=== PATIENT | female | born 1960 | race Caucasian/White ===

== ENCOUNTER 2016-06-09 17:15 | Emergency (ER) | payer MEDICARE, MEDICAID ==
[~2016-06-09] VITALS: Ht 152.4 cm; Wt 90.9 kg
[~2016-06-09 17:15] MED LIST: CLON1 PO; LITH300C3 PO; OLAN10TA3 PO
[2016-06-09] MEDS ORDERED: LORazepam 2 MG/ML VIAL IM ONE (18:30)
[2016-06-09 20:24] LABS: BASOPHILS # (AUTO) 0.03 K/uL (0.00-0.20); BASOPHILS % (AUTO) 0.3 % (0.0-2.0); EOSINOPHILS # (AUTO) 0.17 K/uL (0.00-0.70); EOSINOPHILS % (AUTO) 1.61 % (1.0-6.0); HEMATOCRIT 36.5 % (36-46); HEMOGLOBIN 12.5 g/dL (12.0-16.0); LYMPHOCYTES % (AUTO) 18.6 % (22.0-44.0); MEAN CORPUSCULAR HEMOGLOBIN 31.1 pg (26.0-34.0); MEAN CORPUSCULAR HGB CONC 34.2 G/dL (31.0-37.0); MEAN CORPUSCULAR VOLUME 91 fL (80-100); MONOCYTES # (AUTO) 0.8 K/uL (0.1-1.0); MONOCYTES % (AUTO) 7.8 % (2.0-9.0); NEUTROPHILS # (AUTO) 7.8 K/uL (1.8-7.7); NEUTROPHILS % (AUTO) 71.8 % (40.0-70.0); PLATELET COUNT (AUTO) 321 K/uL (150-450); RED BLOOD CELL COUNT(AUTO) 4.01 MIL/uL (4.00-5.20); RED CELL DISTRIBUTION WIDTH 13.6 % (11.5-14.5); WHITE BLOOD COUNT (AUTO) 10.8 K/uL (4.5-11.0)
[2016-06-09 20:34] LABS: ANION GAP 9 mmol/L (8-16); CARBON DIOXIDE 27 mmol/L (22-29); CHLORIDE 102 mmol/L (98-107); CREATININE 0.95 mg/dL (0.60-1.30); GLOMERULAR FILTR. RATE CALC > 60 mL/min (>60); POTASSIUM 3.9 mmol/L (3.5-5.1); SODIUM SERUM 138 mmol/L (136-145); UREA NITROGEN, BLOOD 18 mg/dL (7-18)
[2016-06-09 20:40] LABS: ALANINE AMINOTRANSFERASE 21 U/L (12-78); ALBUMIN 3.9 g/dL (3.4-5.0); ASPARTATE AMINOTRANSFERASE 15 U/L (15-37); BILIRUBIN,TOTAL 0.3 mg/dL (0.1-1.0); TOTAL PROTEIN, SERUM 7.7 g/dL (6.4-8.2)
[2016-06-09 23:05] VITALS: BP 115/68
== END 2016-06-09 23:05 | disposition home or self-care (01) ==
LOC: EMS 17:18
DX: R41.82 Altered mental status, unspecified (principal); F25.9 Schizoaffective disorder, unspecified; F31.9 Bipolar disorder, unspecified; E78.00 Pure hypercholesterolemia, unspecified
CPT/HCPCS: 36415; 80053; 82140; 85025; 96372; 99284; G0480; J2060

== ENCOUNTER 2016-06-17 12:36 | Inpatient (IN) | payer MEDICARE, MEDICAID ==
[~2016-06-17] VITALS: Ht 157.5 cm; Wt 74.7 kg
[2016-06-17] MEDS ORDERED: ARIP10TA14 PO (12:58)
[2016-06-17] MEDS ORDERED: QUET300T2 PO (12:58)
[2016-06-17] MEDS ORDERED: LORA1TAB3 PO (12:58)
[2016-06-17] MEDS ORDERED: LITH300C3 PO (12:58)
[2016-06-17] MEDS ORDERED: PARO10TA89 PO (12:58)
[2016-06-17] MEDS ORDERED: POT1TABL2 PO (12:58)
[2016-06-17] MEDS ORDERED: TRAZ-147 PO (12:58)
[2016-06-17] MEDS ORDERED: GABA-529 PO (12:58)
[2016-06-17] MEDS ORDERED: GEMF600T3 PO (12:58)
[2016-06-17] MEDS ORDERED: QUET200T PO (12:58)
[2016-06-17] MEDS ORDERED: METO-323 PO (12:58)
[2016-06-17] MEDS ORDERED: ARIP400S3 IM (12:58)
[2016-06-17] MEDS ORDERED: ATOR10TA84 PO (12:58)
[2016-06-17] MEDS ORDERED: METF500T4 PO (12:58)
[2016-06-17 13:26] LABS: GLUCOSE,POINT OF CARE 120 MG/DL (70-110)
[2016-06-17 14:22] LABS: BASOPHILS % (AUTO) 0.4 % (0.0-2.0); EOSINOPHILS % (AUTO) 1.8 % (1.0-6.0); HEMATOCRIT 35.1 % (36-46); HEMOGLOBIN 11.6 g/dL (12.0-16.0); LYMPHOCYTES # (AUTO) 1.5 K/uL (1.0-4.8); MEAN CORPUSCULAR HEMOGLOBIN 30.3 pg (26.0-34.0); MEAN CORPUSCULAR HGB CONC 33.2 G/dL (31.0-37.0); MEAN CORPUSCULAR VOLUME 92 fL (80-100); MONOCYTES # (AUTO) 0.8 K/uL (0.1-1.0); MONOCYTES % (AUTO) 9.1 % (2.0-9.0); NEUTROPHILS # (AUTO) 6.7 K/uL (1.8-7.7); NEUTROPHILS % (AUTO) 72.7 % (40.0-70.0); PLATELET COUNT (AUTO) 318 K/uL (150-450); RED BLOOD CELL COUNT(AUTO) 3.84 MIL/uL (4.00-5.20); RED CELL DISTRIBUTION WIDTH 12.9 % (11.5-14.5); WHITE BLOOD COUNT (AUTO) 9.2 K/uL (4.5-11.0)
[2016-06-17 14:33] LABS: ANION GAP 12 mmol/L (8-16); CALCIUM, TOTAL 9.5 mg/dL (8.8-10.5); CARBON DIOXIDE 27 mmol/L (22-29); CHLORIDE 104 mmol/L (98-107); CREATININE 0.91 mg/dL (0.60-1.30); GLOMERULAR FILTR. RATE CALC > 60 mL/min (>60); LITHIUM 0.93 mmol/L (0.60-1.20); POTASSIUM 3.6 mmol/L (3.5-5.1); SODIUM SERUM 143 mmol/L (136-145); UREA NITROGEN, BLOOD 9 mg/dL (7-18)
[2016-06-17 14:35] LABS: INR 1.1 (0.9-1.1); PROTHROMBIN TIME 11.2 SEC (9.4-11.6)
[2016-06-17 14:39] LABS: APPEARANCE,URINE CLEAR (CLEAR); GLUCOSE, URINE (UA) NEGATIVE (NEGATIVE); KETONES,URINE NEGATIVE (NEGATIVE); LEUKOCYTE ESTERASE ,URINE NEGATIVE (NEGATIVE); OCCULT BLOOD,URINE NEGATIVE (NEGATIVE); PROTEIN,URINE NEGATIVE (NEGATIVE)
[2016-06-17 14:41] LABS: AMMONIA 27 umol/L (11-32)
[2016-06-17 14:42] LABS: TROPONIN I < 0.02 ng/mL (0.00-0.05)
[2016-06-17 14:56] LABS: ADD UA MICROSCOPIC NO
[2016-06-17 15:07] LABS: ALANINE AMINOTRANSFERASE 27 U/L (12-78); ALBUMIN 3.6 g/dL (3.4-5.0); ASPARTATE AMINOTRANSFERASE 25 U/L (15-37); BILIRUBIN,TOTAL 0.3 mg/dL (0.1-1.0); CREATINE KINASE MB 4.7 ng/mL (0-5); CREATINE KINASE, TOTAL 302 U/L (26-192); TOTAL PROTEIN, SERUM 7.6 g/dL (6.4-8.2)
[2016-06-17 15:16] LABS: ABG A-A DIFF O2 53.4 mmHg (10-20.0); ABG BASE EXCESS 3.2 mmol/L (-2.0-3.0); ABG HCO3 27.2 mmol/L (22.0-26.0); ABG OXYHEMOGLOBIN 93.3 % (94.0-100.0); ABG PCO2 39 mmHg (35-45); ABG PH 7.463 (7.35-7.450); TEMPERATURE, FAHRENHEIT, BG 98.6 FAHREN (96.0-98.6)
[2016-06-17 15:17] LABS: ALLEN TEST, BLOOD GAS Positive
[2016-06-18 00:11] LABS: GLUCOSE,POINT OF CARE 149 MG/DL (70-110)
[2016-06-18 01:34] VITALS: BP 127/80
[2016-06-18 05:52] LABS: GLUCOSE,POINT OF CARE 152 MG/DL (70-110)
[2016-06-18 08:30] VITALS: BP 148/99
[2016-06-18] MEDS: ATORVASTATIN CALCIUM 10 MG TABLET PO SCH (10:53)
[2016-06-18 11:22] LABS: GLUCOSE,POINT OF CARE 181 MG/DL (70-110)
[2016-06-18] MEDS: LITHIUM CARBONATE 300 MG CAPSULE PO SCH (16:01)
[2016-06-18] MEDS: MetFORMIN HCL 500 MG TABLET PO SCH (16:01)
[2016-06-18] MEDS: METOPROLOL SUCCINATE 25 MG ER TABLET PO SCH (16:01)
[2016-06-18] MEDS: GEMFIBROZIL 600 MG TABLET PO SCH (16:01)
[2016-06-18 16:12] LABS: GLUCOSE,POINT OF CARE 153 MG/DL (70-110)
[2016-06-18 19:24] VITALS: BP 123/84
[2016-06-18] MEDS ORDERED: ACETAMINOPHEN 325 MG TABLET PO PRN (20:15)
[2016-06-18] MEDS ORDERED: IBUPROFEN 400 MG TABLET PO PRN (20:15)
[2016-06-18] MEDS: OLANZapine 10 MG TABLET PO SCH (20:29)
[2016-06-18 22:42] LABS: GLUCOSE,POINT OF CARE 206 MG/DL (70-110)
[2016-06-19 04:50] VITALS: BP 124/94
[2016-06-19 05:12] LABS: GLUCOSE,POINT OF CARE 177 MG/DL (70-110)
[2016-06-19] MEDS: GEMFIBROZIL 600 MG TABLET PO SCH ×2 (05:37→16:28)
[2016-06-19] MEDS: MetFORMIN HCL 500 MG TABLET PO SCH ×2 (06:32→17:32)
[2016-06-19 07:13] LABS: HEMOGLOBIN A1C 6.5 % (4.5-6.2)
[2016-06-19 07:15] LABS: CHOL/HDL RATIO 3.1 (3.9-5.7); THYROID STIMULATING HORMONE 6.9 uIU/mL (0.36-3.74)
[2016-06-19 08:02] VITALS: BP 106/64
[2016-06-19] MEDS: ATORVASTATIN CALCIUM 10 MG TABLET PO SCH (08:09)
[2016-06-19] MEDS: METOPROLOL SUCCINATE 25 MG ER TABLET PO SCH ×2 (08:09→16:28)
[2016-06-19] MEDS: LITHIUM CARBONATE 300 MG CAPSULE PO SCH ×2 (08:09→16:28)
[2016-06-19 11:28] LABS: GLUCOSE,POINT OF CARE 129 MG/DL (70-110)
[2016-06-19 16:41] LABS: GLUCOSE COMMENT 1 Received Meds; GLUCOSE,POINT OF CARE 165 MG/DL (70-110)
[2016-06-19 17:06] VITALS: BP 108/64
[2016-06-19] MEDS ORDERED: KDUR20 PO (20:29)
[2016-06-19] MEDS: OLANZapine 10 MG TABLET PO SCH (20:29)
[2016-06-19] MEDS ORDERED: PETROLATUM,WHITE 71 GM JELLY TP PRN (20:30)
[2016-06-19 20:31] LABS: GLUCOSE,POINT OF CARE 210 MG/DL (70-110)
[2016-06-20 06:18] LABS: GLUCOSE COMMENT 1 Received Meds; GLUCOSE,POINT OF CARE 172 MG/DL (70-110)
[2016-06-20] MEDS: GEMFIBROZIL 600 MG TABLET PO SCH ×2 (07:08→16:36)
[2016-06-20 08:30] VITALS: BP 112/58
[2016-06-20] MEDS: LITHIUM CARBONATE 300 MG CAPSULE PO SCH ×2 (08:34→16:36)
[2016-06-20] MEDS: ATORVASTATIN CALCIUM 10 MG TABLET PO SCH (08:36)
[2016-06-20] MEDS: MetFORMIN HCL 500 MG TABLET PO SCH ×2 (08:39→18:27)
[2016-06-20] MEDS: METOPROLOL SUCCINATE 25 MG ER TABLET PO SCH ×2 (09:00→16:36)
[2016-06-20 11:58] LABS: GLUCOSE,POINT OF CARE 112 MG/DL (70-110)
[2016-06-20 16:11] VITALS: BP 112/79
[2016-06-20 16:19] VITALS: BP 112/71
[2016-06-20] MEDS: HALOPERIDOL 5 MG TABLET PO PRN (16:36)
[2016-06-20] MEDS: LORazepam 2 MG TABLET PO PRN (16:36)
[2016-06-20 16:47] LABS: GLUCOSE,POINT OF CARE 135 MG/DL (70-110)
[2016-06-20] MEDS: OLANZapine 10 MG TABLET PO SCH (20:31)
[2016-06-21 03:00] VITALS: BP 126/60
[2016-06-21 05:46] LABS: GLUCOSE,POINT OF CARE 171 MG/DL (70-110)
[2016-06-21] MEDS: GEMFIBROZIL 600 MG TABLET PO SCH ×2 (06:05→16:43)
[2016-06-21] MEDS: MetFORMIN HCL 500 MG TABLET PO SCH ×2 (07:21→16:43)
[2016-06-21] MEDS: ATORVASTATIN CALCIUM 10 MG TABLET PO SCH (08:02)
[2016-06-21] MEDS: LITHIUM CARBONATE 300 MG CAPSULE PO SCH ×2 (08:02→16:43)
[2016-06-21] MEDS: METOPROLOL SUCCINATE 25 MG ER TABLET PO SCH ×2 (08:02→16:43)
[2016-06-21 09:03] VITALS: BP 122/71
[2016-06-21 11:18] LABS: GLUCOSE,POINT OF CARE 119 MG/DL (70-110)
[2016-06-21] MEDS: LORazepam 2 MG TABLET PO PRN (15:33)
[2016-06-21] MEDS: HALOPERIDOL 5 MG TABLET PO PRN (15:33)
[2016-06-21 17:00] VITALS: BP 143/69
[2016-06-21 17:12] LABS: GLUCOSE,POINT OF CARE 129 MG/DL (70-110)
[2016-06-21] MEDS: OLANZapine 10 MG TABLET PO SCH (21:37)
[2016-06-21] MEDS: ZOLPIDEM TARTRATE 10 MG TABLET PO PRN (22:55)
[2016-06-22 05:44] LABS: GLUCOSE,POINT OF CARE 153 MG/DL (70-110)
[2016-06-22 06:24] VITALS: BP 104/59
[2016-06-22] MEDS: GEMFIBROZIL 600 MG TABLET PO SCH ×2 (06:49→16:31)
[2016-06-22] MEDS: MetFORMIN HCL 500 MG TABLET PO SCH ×2 (06:49→16:31)
[2016-06-22 06:57] LABS: LITHIUM 0.61 mmol/L (0.60-1.20)
[2016-06-22 07:38] LABS: GLUCOSE,POINT OF CARE 135 MG/DL (70-110)
[2016-06-22 07:50] LABS: CREATINE KINASE MB 5.6 ng/mL (0-5)
[2016-06-22] MEDS: METOPROLOL SUCCINATE 25 MG ER TABLET PO SCH ×2 (08:34→16:31)
[2016-06-22] MEDS: LITHIUM CARBONATE 300 MG CAPSULE PO SCH ×2 (08:35→16:31)
[2016-06-22] MEDS: ATORVASTATIN CALCIUM 10 MG TABLET PO SCH (08:35)
[2016-06-22] MEDS: HALOPERIDOL 5 MG TABLET PO PRN ×2 (08:37→15:45)
[2016-06-22] MEDS: LORazepam 2 MG TABLET PO PRN ×2 (08:37→15:45)
[2016-06-22 11:27] VITALS: BP 90/63
[2016-06-22 11:59] LABS: GLUCOSE,POINT OF CARE 132 MG/DL (70-110)
[2016-06-22 16:35] VITALS: BP 133/75
[2016-06-22 17:32] LABS: GLUCOSE COMMENT 1 Received Meds; GLUCOSE,POINT OF CARE 137 MG/DL (70-110)
[2016-06-22 20:46] LABS: GLUCOSE,POINT OF CARE 196 MG/DL (70-110)
[2016-06-22] MEDS: OLANZapine 10 MG TABLET PO SCH (21:03)
[2016-06-23] MEDS: GEMFIBROZIL 600 MG TABLET PO SCH ×2 (06:41→17:21)
[2016-06-23] MEDS: MetFORMIN HCL 500 MG TABLET PO SCH ×2 (06:41→17:21)
[2016-06-23 07:04] LABS: GLUCOSE,POINT OF CARE 186 MG/DL (70-110)
[2016-06-23] MEDS: METOPROLOL SUCCINATE 25 MG ER TABLET PO SCH ×2 (08:18→17:21)
[2016-06-23] MEDS: LITHIUM CARBONATE 300 MG CAPSULE PO SCH ×2 (08:18→17:20)
[2016-06-23] MEDS: ATORVASTATIN CALCIUM 10 MG TABLET PO SCH (08:19)
[2016-06-23 08:52] VITALS: BP 128/72
[2016-06-23] MEDS: HALOPERIDOL 5 MG TABLET PO PRN ×2 (09:21→16:25)
[2016-06-23] MEDS: LORazepam 2 MG TABLET PO PRN ×2 (09:21→16:25)
[2016-06-23 13:53] LABS: GLUCOSE,POINT OF CARE 122 MG/DL (70-110)
[2016-06-23 16:27] LABS: GLUCOSE,POINT OF CARE 144 MG/DL (70-110)
[2016-06-23 16:31] VITALS: BP 114/78
[2016-06-23] MEDS: OLANZapine 10 MG TABLET PO SCH (20:44)
[2016-06-23] MEDS: ZOLPIDEM TARTRATE 10 MG TABLET PO PRN (20:44)
[2016-06-23 20:47] LABS: GLUCOSE,POINT OF CARE 175 MG/DL (70-110)
[2016-06-24 00:42] VITALS: BP 119/70
[2016-06-24 05:27] LABS: GLUCOSE,POINT OF CARE 143 MG/DL (70-110)
[2016-06-24] MEDS: MetFORMIN HCL 500 MG TABLET PO SCH ×2 (07:01→16:30)
[2016-06-24] MEDS: GEMFIBROZIL 600 MG TABLET PO SCH ×2 (07:01→16:30)
[2016-06-24 08:01] VITALS: BP 121/77
[2016-06-24] MEDS: LITHIUM CARBONATE 300 MG CAPSULE PO SCH ×2 (08:37→16:30)
[2016-06-24] MEDS: ATORVASTATIN CALCIUM 10 MG TABLET PO SCH (08:37)
[2016-06-24] MEDS: METOPROLOL SUCCINATE 25 MG ER TABLET PO SCH ×2 (08:37→16:30)
[2016-06-24] MEDS: LORazepam 2 MG TABLET PO PRN ×2 (08:57→16:31)
[2016-06-24 11:26] LABS: GLUCOSE,POINT OF CARE 182 MG/DL (70-110)
[2016-06-24] MEDS: HALOPERIDOL 5 MG TABLET PO PRN (16:30)
[2016-06-24 17:17] VITALS: BP 110/72
[2016-06-24 17:37] LABS: GLUCOSE,POINT OF CARE 140 MG/DL (70-110)
[2016-06-24] MEDS: OLANZapine 10 MG TABLET PO SCH (20:47)
[2016-06-25 05:42] LABS: GLUCOSE,POINT OF CARE 154 MG/DL (70-110)
[2016-06-25] MEDS: GEMFIBROZIL 600 MG TABLET PO SCH ×2 (06:42→16:47)
[2016-06-25] MEDS: MetFORMIN HCL 500 MG TABLET PO SCH ×2 (06:42→16:48)
[2016-06-25] MEDS: LITHIUM CARBONATE 300 MG CAPSULE PO SCH ×2 (08:10→16:47)
[2016-06-25] MEDS: ATORVASTATIN CALCIUM 10 MG TABLET PO SCH (08:10)
[2016-06-25] MEDS: METOPROLOL SUCCINATE 25 MG ER TABLET PO SCH ×2 (08:11→16:47)
[2016-06-25] MEDS: LORazepam 2 MG TABLET PO PRN ×2 (08:11→12:25)
[2016-06-25 09:15] VITALS: BP 117/77
[2016-06-25 11:07] LABS: GLUCOSE,POINT OF CARE 116 MG/DL (70-110)
[2016-06-25] MEDS: HALOPERIDOL 5 MG TABLET PO PRN (12:25)
[2016-06-25 16:43] VITALS: BP 132/82
[2016-06-25 17:12] LABS: GLUCOSE,POINT OF CARE 137 MG/DL (70-110)
[2016-06-25] MEDS: OLANZapine 10 MG TABLET PO SCH (20:28)
[2016-06-25 22:46] LABS: GLUCOSE,POINT OF CARE 160 MG/DL (70-110)
[2016-06-26 05:32] LABS: GLUCOSE,POINT OF CARE 157 MG/DL (70-110)
[2016-06-26] MEDS: MetFORMIN HCL 500 MG TABLET PO SCH ×2 (06:37→17:37)
[2016-06-26] MEDS: GEMFIBROZIL 600 MG TABLET PO SCH ×2 (06:37→16:16)
[2016-06-26 08:00] VITALS: BP 131/74
[2016-06-26] MEDS: LITHIUM CARBONATE 300 MG CAPSULE PO SCH ×2 (08:45→16:16)
[2016-06-26] MEDS: ATORVASTATIN CALCIUM 10 MG TABLET PO SCH (08:46)
[2016-06-26] MEDS: METOPROLOL SUCCINATE 25 MG ER TABLET PO SCH ×2 (08:46→16:17)
[2016-06-26] MEDS: HALOPERIDOL 5 MG TABLET PO PRN ×2 (08:46→17:20)
[2016-06-26] MEDS: LORazepam 2 MG TABLET PO PRN ×3 (08:46→17:20)
[2016-06-26 11:52] LABS: GLUCOSE,POINT OF CARE 90 MG/DL (70-110)
[2016-06-26 16:29] VITALS: BP 117/79
[2016-06-26 16:57] LABS: GLUCOSE,POINT OF CARE 133 MG/DL (70-110)
[2016-06-26] MEDS: OLANZapine 10 MG TABLET PO SCH (20:38)
[2016-06-26 20:41] LABS: GLUCOSE,POINT OF CARE 157 MG/DL (70-110)
[2016-06-27 06:36] LABS: GLUCOSE,POINT OF CARE 165 MG/DL (70-110)
[2016-06-27] MEDS: GEMFIBROZIL 600 MG TABLET PO SCH ×2 (06:46→16:57)
[2016-06-27] MEDS: MetFORMIN HCL 500 MG TABLET PO SCH ×2 (06:46→16:57)
[2016-06-27] MEDS: LITHIUM CARBONATE 300 MG CAPSULE PO SCH ×2 (08:26→16:57)
[2016-06-27] MEDS: METOPROLOL SUCCINATE 25 MG ER TABLET PO SCH ×2 (08:27→16:57)
[2016-06-27] MEDS: ATORVASTATIN CALCIUM 10 MG TABLET PO SCH (08:27)
[2016-06-27] MEDS: HALOPERIDOL 5 MG TABLET PO PRN (08:29)
[2016-06-27] MEDS: LORazepam 2 MG TABLET PO PRN (08:29)
[2016-06-27 08:39] VITALS: BP 117/71
[2016-06-27 11:47] LABS: GLUCOSE,POINT OF CARE 91 MG/DL (70-110)
[2016-06-27 17:11] LABS: GLUCOSE COMMENT 1 Received Meds; GLUCOSE,POINT OF CARE 146 MG/DL (70-110)
[2016-06-27 17:20] VITALS: BP 123/71
[2016-06-27] MEDS: OLANZapine 10 MG TABLET PO SCH (21:07)
[2016-06-27 21:22] LABS: GLUCOSE COMMENT 1 Received Meds; GLUCOSE,POINT OF CARE 144 MG/DL (70-110)
[2016-06-28] MEDS: LORazepam 2 MG TABLET PO PRN ×2 (05:42→17:05)
[2016-06-28 05:52] LABS: GLUCOSE,POINT OF CARE 155 MG/DL (70-110)
[2016-06-28] MEDS: GEMFIBROZIL 600 MG TABLET PO SCH ×2 (07:00→16:27)
[2016-06-28] MEDS: MetFORMIN HCL 500 MG TABLET PO SCH ×2 (07:30→16:27)
[2016-06-28] MEDS: LITHIUM CARBONATE 300 MG CAPSULE PO SCH ×2 (08:26→16:28)
[2016-06-28] MEDS: ATORVASTATIN CALCIUM 10 MG TABLET PO SCH (08:26)
[2016-06-28] MEDS: METOPROLOL SUCCINATE 25 MG ER TABLET PO SCH ×2 (08:27→16:27)
[2016-06-28 09:00] VITALS: BP 120/82
[2016-06-28 11:42] LABS: GLUCOSE,POINT OF CARE 110 MG/DL (70-110)
[2016-06-28 16:23] VITALS: BP 112/79
[2016-06-28] MEDS: HALOPERIDOL 5 MG TABLET PO PRN (17:05)
[2016-06-28] MEDS: OLANZapine 10 MG TABLET PO SCH (21:41)
[2016-06-28 21:47] LABS: GLUCOSE,POINT OF CARE 114 MG/DL (70-110)
[2016-06-29 06:03] LABS: GLUCOSE,POINT OF CARE 169 MG/DL (70-110)
[2016-06-29 06:42] VITALS: BP 132/81
[2016-06-29] MEDS: GEMFIBROZIL 600 MG TABLET PO SCH ×2 (07:02→16:57)
[2016-06-29] MEDS: MetFORMIN HCL 500 MG TABLET PO SCH ×2 (07:03→16:55)
[2016-06-29] MEDS: HALOPERIDOL 5 MG TABLET PO PRN ×2 (07:47→12:40)
[2016-06-29] MEDS: LORazepam 2 MG TABLET PO PRN ×2 (07:47→12:40)
[2016-06-29 08:39] VITALS: BP 110/75
[2016-06-29] MEDS: LITHIUM CARBONATE 300 MG CAPSULE PO SCH ×2 (09:29→16:55)
[2016-06-29] MEDS: ATORVASTATIN CALCIUM 10 MG TABLET PO SCH (09:30)
[2016-06-29] MEDS: METOPROLOL SUCCINATE 25 MG ER TABLET PO SCH ×2 (09:30→16:55)
[2016-06-29 11:42] LABS: GLUCOSE,POINT OF CARE 121 MG/DL (70-110)
[2016-06-29 16:42] LABS: GLUCOSE,POINT OF CARE 136 MG/DL (70-110)
[2016-06-29 17:03] VITALS: BP 130/75
[2016-06-29] MEDS: OLANZapine 10 MG TABLET PO SCH (20:14)
[2016-06-29] MEDS: ZOLPIDEM TARTRATE 10 MG TABLET PO PRN (22:39)
[2016-06-30 05:27] LABS: GLUCOSE,POINT OF CARE 168 MG/DL (70-110)
[2016-06-30] MEDS: GEMFIBROZIL 600 MG TABLET PO SCH ×2 (06:28→16:13)
[2016-06-30] MEDS: MetFORMIN HCL 500 MG TABLET PO SCH ×2 (06:33→17:19)
[2016-06-30 08:19] VITALS: BP 119/86
[2016-06-30] MEDS: LORazepam 2 MG TABLET PO PRN ×2 (09:28→16:13)
[2016-06-30] MEDS: HALOPERIDOL 5 MG TABLET PO PRN (09:28)
[2016-06-30] MEDS: ATORVASTATIN CALCIUM 10 MG TABLET PO SCH (09:30)
[2016-06-30] MEDS: LITHIUM CARBONATE 300 MG CAPSULE PO SCH ×2 (09:30→16:13)
[2016-06-30] MEDS: METOPROLOL SUCCINATE 25 MG ER TABLET PO SCH ×2 (09:30→16:13)
[2016-06-30 16:17] LABS: GLUCOSE COMMENT 1 Received Meds; GLUCOSE,POINT OF CARE 128 MG/DL (70-110)
[2016-06-30 17:00] VITALS: BP 116/72
[2016-06-30] MEDS: OLANZapine 10 MG TABLET PO SCH (20:10)
[2016-07-01 05:42] LABS: GLUCOSE,POINT OF CARE 163 MG/DL (70-110)
[2016-07-01 06:41] VITALS: BP 112/78
[2016-07-01] MEDS: GEMFIBROZIL 600 MG TABLET PO SCH ×2 (07:06→16:43)
[2016-07-01] MEDS: MetFORMIN HCL 500 MG TABLET PO SCH ×2 (07:06→16:43)
[2016-07-01] MEDS: HALOPERIDOL 5 MG TABLET PO PRN (07:47)
[2016-07-01] MEDS: LORazepam 2 MG TABLET PO PRN (07:47)
[2016-07-01] MEDS: METOPROLOL SUCCINATE 25 MG ER TABLET PO SCH ×2 (08:00→16:43)
[2016-07-01] MEDS: LITHIUM CARBONATE 300 MG CAPSULE PO SCH ×2 (08:00→16:43)
[2016-07-01] MEDS: ATORVASTATIN CALCIUM 10 MG TABLET PO SCH (08:00)
[2016-07-01 08:15] VITALS: BP 138/98
[2016-07-01 17:15] VITALS: BP 136/79
[2016-07-01] MEDS: OLANZapine 10 MG TABLET PO SCH (19:57)
[2016-07-01 21:22] LABS: GLUCOSE,POINT OF CARE 168 MG/DL (70-110)
[2016-07-01] MEDS: ZOLPIDEM TARTRATE 10 MG TABLET PO PRN (23:15)
[2016-07-02 05:53] LABS: GLUCOSE COMMENT 1 Received Meds; GLUCOSE,POINT OF CARE 175 MG/DL (70-110)
[2016-07-02] MEDS: GEMFIBROZIL 600 MG TABLET PO SCH ×2 (06:14→16:49)
[2016-07-02] MEDS: MetFORMIN HCL 500 MG TABLET PO SCH ×2 (07:30→16:49)
[2016-07-02 08:15] VITALS: BP 111/73
[2016-07-02] MEDS: LORazepam 2 MG TABLET PO PRN ×3 (08:31→22:06)
[2016-07-02] MEDS: HALOPERIDOL 5 MG TABLET PO PRN (08:32)
[2016-07-02] MEDS: METOPROLOL SUCCINATE 25 MG ER TABLET PO SCH ×2 (08:32→16:50)
[2016-07-02] MEDS: ATORVASTATIN CALCIUM 10 MG TABLET PO SCH (08:32)
[2016-07-02] MEDS: LITHIUM CARBONATE 300 MG CAPSULE PO SCH ×2 (08:32→16:49)
[2016-07-02 17:00] VITALS: BP 119/82
[2016-07-02 17:08] LABS: GLUCOSE COMMENT 1 Received Meds; GLUCOSE,POINT OF CARE 149 MG/DL (70-110)
[2016-07-02] MEDS: OLANZapine 10 MG TABLET PO SCH (21:05)
[2016-07-03 05:58] LABS: GLUCOSE,POINT OF CARE 145 MG/DL (70-110)
[2016-07-03 06:29] VITALS: BP 124/73
[2016-07-03] MEDS: GEMFIBROZIL 600 MG TABLET PO SCH (06:48)
[2016-07-03] MEDS: MetFORMIN HCL 500 MG TABLET PO SCH (06:48)
[2016-07-03] MEDS: HALOPERIDOL 5 MG TABLET PO PRN ×2 (07:49→13:15)
[2016-07-03] MEDS: LORazepam 2 MG TABLET PO PRN ×2 (07:49→13:15)
[2016-07-03 08:40] VITALS: BP 124/58
[2016-07-03] MEDS: LITHIUM CARBONATE 300 MG CAPSULE PO SCH (10:00)
[2016-07-03] MEDS: ATORVASTATIN CALCIUM 10 MG TABLET PO SCH (10:00)
[2016-07-03] MEDS: METOPROLOL SUCCINATE 25 MG ER TABLET PO SCH (10:00)
[2016-07-03] MEDS ORDERED: OLAN10TA3 PO (10:26)
== END 2016-07-03 15:00 | disposition home or self-care (01) | DRG 885 ==
LOC: EMS 12:39 → 3EX 22:33
PROVIDERS: ADMIT Psychiatry & Neurology Psychiatry; ATTEND Psychiatry & Neurology Psychiatry
DX: F25.0 Schizoaffective disorder, bipolar type (principal); M62.82 Rhabdomyolysis; I10 Essential (primary) hypertension; E78.5 Hyperlipidemia, unspecified; E11.9 Type 2 diabetes mellitus without complications; F10.10 Alcohol abuse, uncomplicated; D64.9 Anemia, unspecified; F22 Delusional disorders; Z59.9 Problem related to housing and economic circumstances, unspecified; Z79.899 Other long term (current) drug therapy
CPT/HCPCS: 51702; 70450; 82805; 82962; 83036; 84443; 87040; 93005; 99285; G0480

== ENCOUNTER 2016-07-08 16:03 | Emergency (ER) | payer MEDICARE, MEDICAID ==
[~2016-07-08] VITALS: Ht 157.5 cm; Wt 72.7 kg
[~2016-07-08 16:03] MED LIST changes: +ATOR10TA84 PO; -CLON1 PO; +GEMF600T3 PO; +METF500T4 PO; +METO-323 PO
[2016-07-08] MEDS ORDERED: BENZ1TAB10 PO (16:11)
[2016-07-08] MEDS ORDERED: QUET25TA PO (16:11)
[2016-07-08] MEDS ORDERED: ARIP15TA3 PO (16:11)
[2016-07-08] MEDS ORDERED: GLIP5 PO (16:11)
[2016-07-08] MEDS ORDERED: KETOROLAC TROMETHAMINE 60 MG/2 ML VIAL IM ONE (18:00)
[2016-07-08 19:03] VITALS: BP 131/77
== END 2016-07-08 19:07 | disposition home or self-care (01) ==
LOC: EMS 16:05
DX: S33.5XXA Sprain of ligaments of lumbar spine, initial encounter (principal); N39.0 Urinary tract infection, site not specified; I10 Essential (primary) hypertension; E78.00 Pure hypercholesterolemia, unspecified; E11.9 Type 2 diabetes mellitus without complications; X58.XXXA Exposure to other specified factors, initial encounter; Y93.89 Activity, other specified; Y92.89 Other specified places as the place of occurrence of the external cause; Y99.8 Other external cause status
CPT/HCPCS: 96372; 99283; J1885

== ENCOUNTER 2016-09-04 19:17 | Inpatient (IN) | payer MEDICARE, MEDICAID ==
[~2016-09-04] VITALS: Ht 157.5 cm; Wt 73.3 kg
[~2016-09-04 19:17] MED LIST changes: -ATOR10TA84 PO; -GEMF600T3 PO; -METF500T4 PO; -METO-323 PO
[2016-09-04 19:55] VITALS: BP 131/77
[2016-09-04 21:00] VITALS: BP 132/71
[2016-09-04] MEDS ORDERED: DEXTROSE 50%-WATER 25 GM/50 ML SYRINGE IVP PRN (21:00)
[2016-09-04] MEDS: OLANZapine 10 MG TABLET PO SCH (21:31)
[2016-09-04] MEDS: LITHIUM CARBONATE 300 MG CAPSULE PO SCH (21:31)
[2016-09-04 21:37] LABS: GLUCOSE,POINT OF CARE 142 MG/DL (70-110)
[2016-09-04 21:58] LABS: BASOPHILS % (AUTO) 0.4 % (0.0-2.0); EOSINOPHILS % (AUTO) 2.7 % (1.0-6.0); HEMATOCRIT 37.3 % (36-46); HEMOGLOBIN 12.8 g/dL (12.0-16.0); LYMPHOCYTES # (AUTO) 3.4 K/uL (1.0-4.8); LYMPHOCYTES % (AUTO) 34.6 % (22.0-44.0); MEAN CORPUSCULAR HEMOGLOBIN 30.7 pg (26.0-34.0); MEAN CORPUSCULAR HGB CONC 34.4 G/dL (31.0-37.0); MEAN CORPUSCULAR VOLUME 89 fL (80-100); MONOCYTES # (AUTO) 0.9 K/uL (0.1-1.0); NEUTROPHILS # (AUTO) 5.3 K/uL (1.8-7.7); NEUTROPHILS % (AUTO) 53.3 % (40.0-70.0); PLATELET COUNT (AUTO) 308 K/uL (150-450); RED BLOOD CELL COUNT(AUTO) 4.18 MIL/uL (4.00-5.20); RED CELL DISTRIBUTION WIDTH 13.3 % (11.5-14.5); WHITE BLOOD COUNT (AUTO) 9.9 K/uL (4.5-11.0)
[2016-09-04 22:07] LABS: ALANINE AMINOTRANSFERASE 33 U/L (12-78); ALBUMIN 3.5 g/dL (3.4-5.0); ANION GAP 6 mmol/L (8-16); ASPARTATE AMINOTRANSFERASE 26 U/L (15-37); BILIRUBIN,TOTAL 0.3 mg/dL (0.1-1.0); CALCIUM, TOTAL 9.3 mg/dL (8.8-10.5); CARBON DIOXIDE 27 mmol/L (22-29); CHLORIDE 107 mmol/L (98-107); CREATININE 0.81 mg/dL (0.60-1.30); GLOMERULAR FILTR. RATE CALC > 60 mL/min (>60); POTASSIUM 3.7 mmol/L (3.5-5.1); SODIUM SERUM 140 mmol/L (136-145); TOTAL PROTEIN, SERUM 6.8 g/dL (6.4-8.2); UREA NITROGEN, BLOOD 9 mg/dL (7-18)
[2016-09-05] MEDS: HALOPERIDOL 5 MG TABLET PO PRN ×2 (01:05→08:11)
[2016-09-05] MEDS: ZOLPIDEM TARTRATE 10 MG TABLET PO PRN (01:05)
[2016-09-05 05:38] LABS: GLUCOSE COMMENT 1 Received Meds; GLUCOSE,POINT OF CARE 128 MG/DL (70-110)
[2016-09-05] MEDS: LORazepam 2 MG TABLET PO PRN ×2 (08:11→16:36)
[2016-09-05] MEDS: LITHIUM CARBONATE 300 MG CAPSULE PO SCH ×2 (08:11→16:36)
[2016-09-05] MEDS ORDERED: ONDANSETRON HCL 4 MG TABLET PO PRN (08:15)
[2016-09-05] MEDS ORDERED: IBUPROFEN 600 MG TABLET PO PRN (08:15)
[2016-09-05] MEDS ORDERED: ACETAMINOPHEN 325 MG TABLET PO PRN (08:15)
[2016-09-05] MEDS ORDERED: MAGNESIUM HYDROXIDE SUSPENSION 30 ML UDCUP PO PRN (08:15)
[2016-09-05] MEDS ORDERED: PETROLATUM,WHITE 71 GM JELLY TP PRN (08:15)
[2016-09-05] MEDS ORDERED: ALBUTEROL SULFATE HFA 90 MCG/PUFF 8 GM INHALER IH PRN (08:15)
[2016-09-05] MEDS ORDERED: CloNIDine HCL 0.1 MG TABLET PO PRN (08:15)
[2016-09-05] MEDS ORDERED: BENZOCAINE/MENTHOL LOZENGE [8 LOZENGES/PACKET] MM PRN (08:15)
[2016-09-05] MEDS ORDERED: BACITRACIN 28.4 GM OINTMENT TP PRN (08:15)
[2016-09-05] MEDS ORDERED: LOPERAMIDE HCL 2 MG CAPSULE PO PRN (08:15)
[2016-09-05 09:06] VITALS: BP 136/89
[2016-09-05] MEDS: OMEGA-3/DHA/EPA/FISH OIL 500 MG CAPSULE PO SCH (09:11)
[2016-09-05 12:12] LABS: GLUCOSE,POINT OF CARE 107 MG/DL (70-110)
[2016-09-05 17:10] VITALS: BP 118/71
[2016-09-05] MEDS: MetFORMIN HCL 500 MG TABLET PO SCH (17:18)
[2016-09-05 17:28] LABS: GLUCOSE COMMENT 1 Received Meds; GLUCOSE,POINT OF CARE 136 MG/DL (70-110)
[2016-09-05] MEDS: OLANZapine 10 MG TABLET PO SCH (20:41)
[2016-09-05 20:52] LABS: GLUCOSE,POINT OF CARE 110 MG/DL (70-110)
[2016-09-06 01:36] VITALS: BP 125/78
[2016-09-06 05:07] LABS: GLUCOSE,POINT OF CARE 136 MG/DL (70-110)
[2016-09-06] MEDS: MetFORMIN HCL 500 MG TABLET PO SCH ×2 (07:53→16:33)
[2016-09-06] MEDS: OMEGA-3/DHA/EPA/FISH OIL 500 MG CAPSULE PO SCH (07:54)
[2016-09-06] MEDS: LITHIUM CARBONATE 300 MG CAPSULE PO SCH ×2 (07:54→16:20)
[2016-09-06 08:30] VITALS: BP 107/74
[2016-09-06] MEDS: LORazepam 2 MG TABLET PO PRN ×2 (09:25→16:45)
[2016-09-06 11:06] LABS: APPEARANCE,URINE CLEAR (CLEAR); GLUCOSE, URINE (UA) NEGATIVE (NEGATIVE); KETONES,URINE NEGATIVE (NEGATIVE); LEUKOCYTE ESTERASE ,URINE NEGATIVE (NEGATIVE); OCCULT BLOOD,URINE NEGATIVE (NEGATIVE); PROTEIN,URINE NEGATIVE (NEGATIVE)
[2016-09-06 11:07] LABS: ADD UA MICROSCOPIC NO
[2016-09-06 16:22] LABS: GLUCOSE,POINT OF CARE 120 MG/DL (70-110)
[2016-09-06 16:37] VITALS: BP 131/83
[2016-09-06] MEDS: OLANZapine 10 MG TABLET PO SCH (21:08)
[2016-09-07 02:15] VITALS: BP 114/68
[2016-09-07] MEDS: LORazepam 2 MG TABLET PO PRN ×3 (02:48→15:28)
[2016-09-07] MEDS: MetFORMIN HCL 500 MG TABLET PO SCH ×2 (06:39→17:17)
[2016-09-07 08:00] VITALS: BP 134/77
[2016-09-07] MEDS: LITHIUM CARBONATE 300 MG CAPSULE PO SCH ×2 (08:37→16:09)
[2016-09-07] MEDS: OMEGA-3/DHA/EPA/FISH OIL 500 MG CAPSULE PO SCH (08:37)
[2016-09-07 09:04] LABS: GLUCOSE,POINT OF CARE 132 MG/DL (70-110)
[2016-09-07] MEDS ORDERED: TUBERCULIN, PURIFIED PROTEIN DERIVATIVE 5 TU/0.1 ML SYG ID ONE (14:45)
[2016-09-07 16:28] LABS: GLUCOSE COMMENT 1 Received Meds; GLUCOSE,POINT OF CARE 145 MG/DL (70-110)
[2016-09-07 16:37] VITALS: BP 132/80
[2016-09-07] MEDS: INSULIN ASPART 100 UNITS/ML SQ PRN (17:04)
[2016-09-07] MEDS: OLANZapine 10 MG TABLET PO SCH (20:06)
[2016-09-08 05:01] VITALS: BP 108/75
[2016-09-08 06:02] LABS: GLUCOSE,POINT OF CARE 131 MG/DL (70-110)
[2016-09-08] MEDS: MetFORMIN HCL 500 MG TABLET PO SCH ×2 (06:54→16:51)
[2016-09-08] MEDS: HALOPERIDOL 5 MG TABLET PO PRN (07:45)
[2016-09-08] MEDS: OMEGA-3/DHA/EPA/FISH OIL 500 MG CAPSULE PO SCH (07:45)
[2016-09-08] MEDS: LORazepam 2 MG TABLET PO PRN (07:45)
[2016-09-08] MEDS: LITHIUM CARBONATE 300 MG CAPSULE PO SCH ×2 (07:45→16:51)
[2016-09-08 08:00] VITALS: BP 121/78
[2016-09-08 12:11] LABS: GLUCOSE,POINT OF CARE 142 MG/DL (70-110)
[2016-09-08 16:15] VITALS: BP 125/75
[2016-09-08] MEDS: OLANZapine 10 MG TABLET PO SCH (20:20)
[2016-09-09 01:30] VITALS: BP 114/78
[2016-09-09] MEDS: MetFORMIN HCL 500 MG TABLET PO SCH ×2 (06:55→16:30)
[2016-09-09 08:05] VITALS: BP 121/77
[2016-09-09] MEDS: LITHIUM CARBONATE 300 MG CAPSULE PO SCH ×2 (08:09→16:30)
[2016-09-09] MEDS: OMEGA-3/DHA/EPA/FISH OIL 500 MG CAPSULE PO SCH (08:09)
[2016-09-09] MEDS: HALOPERIDOL 5 MG TABLET PO PRN (09:57)
[2016-09-09] MEDS: LORazepam 2 MG TABLET PO PRN ×2 (09:57→15:33)
[2016-09-09 11:07] LABS: GLUCOSE,POINT OF CARE 99 MG/DL (70-110)
[2016-09-09 16:15] VITALS: BP 125/90
[2016-09-09] MEDS: OLANZapine 10 MG TABLET PO SCH (20:03)
[2016-09-09] MEDS: ZOLPIDEM TARTRATE 10 MG TABLET PO PRN (23:46)
[2016-09-10 05:37] LABS: GLUCOSE,POINT OF CARE 124 MG/DL (70-110)
[2016-09-10 06:11] VITALS: BP 118/76
[2016-09-10] MEDS: MetFORMIN HCL 500 MG TABLET PO SCH ×2 (07:31→16:38)
[2016-09-10 08:05] VITALS: BP 122/79
[2016-09-10] MEDS: LITHIUM CARBONATE 300 MG CAPSULE PO SCH ×2 (08:24→16:38)
[2016-09-10] MEDS: HALOPERIDOL 5 MG TABLET PO PRN ×2 (08:24→13:09)
[2016-09-10] MEDS: OMEGA-3/DHA/EPA/FISH OIL 500 MG CAPSULE PO SCH (08:24)
[2016-09-10] MEDS: LORazepam 2 MG TABLET PO PRN ×2 (08:24→13:09)
[2016-09-10 16:15] VITALS: BP 121/80
[2016-09-10] MEDS: OLANZapine 10 MG TABLET PO SCH (20:25)
[2016-09-10 22:36] LABS: GLUCOSE,POINT OF CARE 121 MG/DL (70-110)
[2016-09-11 05:32] VITALS: BP 110/76
[2016-09-11 05:32] LABS: GLUCOSE,POINT OF CARE 134 MG/DL (70-110)
[2016-09-11] MEDS: MetFORMIN HCL 500 MG TABLET PO SCH ×2 (07:11→16:30)
[2016-09-11 08:15] VITALS: BP 119/48
[2016-09-11] MEDS: HALOPERIDOL 5 MG TABLET PO PRN (09:00)
[2016-09-11] MEDS: LITHIUM CARBONATE 300 MG CAPSULE PO SCH ×2 (09:32→16:30)
[2016-09-11] MEDS: OMEGA-3/DHA/EPA/FISH OIL 500 MG CAPSULE PO SCH (09:32)
[2016-09-11] MEDS: LORazepam 2 MG TABLET PO PRN (09:58)
[2016-09-11 11:42] LABS: GLUCOSE,POINT OF CARE 116 MG/DL (70-110)
[2016-09-11 16:15] VITALS: BP 118/77
[2016-09-11 16:42] LABS: GLUCOSE,POINT OF CARE 108 MG/DL (70-110)
[2016-09-11] MEDS: OLANZapine 10 MG TABLET PO SCH (20:00)
[2016-09-12 05:40] VITALS: BP 117/82
[2016-09-12] MEDS: LORazepam 2 MG TABLET PO PRN (07:56)
[2016-09-12] MEDS: MetFORMIN HCL 500 MG TABLET PO SCH ×2 (07:56→17:36)
[2016-09-12] MEDS: OMEGA-3/DHA/EPA/FISH OIL 500 MG CAPSULE PO SCH (07:56)
[2016-09-12] MEDS: LITHIUM CARBONATE 300 MG CAPSULE PO SCH ×2 (07:56→16:23)
[2016-09-12] MEDS: HALOPERIDOL 5 MG TABLET PO PRN (07:56)
[2016-09-12 08:00] VITALS: BP 133/75
[2016-09-12 16:00] VITALS: BP 135/94
[2016-09-12 16:32] LABS: GLUCOSE,POINT OF CARE 109 MG/DL (70-110)
[2016-09-12] MEDS: OLANZapine 10 MG TABLET PO SCH (20:55)
[2016-09-13] MEDS: INSULIN ASPART 100 UNITS/ML SQ PRN (06:56)
[2016-09-13 06:57] LABS: GLUCOSE,POINT OF CARE 131 MG/DL (70-110)
[2016-09-13] MEDS: HALOPERIDOL 5 MG TABLET PO PRN ×2 (09:18→16:15)
[2016-09-13] MEDS: LORazepam 2 MG TABLET PO PRN ×2 (09:19→16:15)
[2016-09-13] MEDS: OMEGA-3/DHA/EPA/FISH OIL 500 MG CAPSULE PO SCH (09:19)
[2016-09-13] MEDS: LITHIUM CARBONATE 300 MG CAPSULE PO SCH ×2 (09:19→16:15)
[2016-09-13] MEDS: MetFORMIN HCL 500 MG TABLET PO SCH ×2 (09:20→17:08)
[2016-09-13 13:35] VITALS: BP 128/58
[2016-09-13 16:30] VITALS: BP 125/68
[2016-09-13 17:07] LABS: GLUCOSE,POINT OF CARE 110 MG/DL (70-110)
[2016-09-13] MEDS: OLANZapine 10 MG TABLET PO SCH (21:28)
[2016-09-14 06:21] VITALS: BP 120/82
[2016-09-14] MEDS: MetFORMIN HCL 500 MG TABLET PO SCH ×2 (07:53→16:52)
[2016-09-14] MEDS: INSULIN ASPART 100 UNITS/ML SQ PRN (07:55)
[2016-09-14 08:00] VITALS: BP 103/68
[2016-09-14 08:01] LABS: GLUCOSE,POINT OF CARE 188 MG/DL (70-110)
[2016-09-14] MEDS: OMEGA-3/DHA/EPA/FISH OIL 500 MG CAPSULE PO SCH (10:06)
[2016-09-14] MEDS: LITHIUM CARBONATE 300 MG CAPSULE PO SCH ×2 (10:06→16:51)
[2016-09-14] MEDS: LORazepam 2 MG TABLET PO PRN (10:06)
[2016-09-14 16:21] LABS: GLUCOSE COMMENT 1 Received Meds; GLUCOSE,POINT OF CARE 146 MG/DL (70-110)
[2016-09-14 17:18] VITALS: BP 136/83
[2016-09-14] MEDS: OLANZapine 10 MG TABLET PO SCH (20:14)
[2016-09-15 06:17] LABS: GLUCOSE COMMENT 1 Received Meds; GLUCOSE,POINT OF CARE 143 MG/DL (70-110)
[2016-09-15 06:20] VITALS: BP 112/76
[2016-09-15] MEDS: MetFORMIN HCL 500 MG TABLET PO SCH ×2 (06:51→17:47)
[2016-09-15] MEDS: INSULIN ASPART 100 UNITS/ML SQ PRN (06:54)
[2016-09-15 07:37] LABS: CHOL/HDL RATIO 5.1 (3.9-5.7)
[2016-09-15 08:00] VITALS: BP 117/78
[2016-09-15] MEDS: LITHIUM CARBONATE 300 MG CAPSULE PO SCH ×2 (08:28→17:47)
[2016-09-15] MEDS: OMEGA-3/DHA/EPA/FISH OIL 500 MG CAPSULE PO SCH (08:28)
[2016-09-15 16:22] LABS: GLUCOSE,POINT OF CARE 120 MG/DL (70-110)
[2016-09-15 16:24] VITALS: BP 149/87
[2016-09-15] MEDS: OLANZapine 10 MG TABLET PO SCH (20:31)
[2016-09-16 06:02] LABS: GLUCOSE,POINT OF CARE 147 MG/DL (70-110)
[2016-09-16 06:21] VITALS: BP 117/82
[2016-09-16] MEDS: MetFORMIN HCL 500 MG TABLET PO SCH ×2 (07:07→16:30)
[2016-09-16] MEDS: LITHIUM CARBONATE 300 MG CAPSULE PO SCH ×2 (08:24→16:28)
[2016-09-16] MEDS: OMEGA-3/DHA/EPA/FISH OIL 500 MG CAPSULE PO SCH (08:25)
[2016-09-16 08:55] VITALS: BP 125/89
[2016-09-16] MEDS: LORazepam 2 MG TABLET PO PRN (09:34)
[2016-09-16] MEDS: HALOPERIDOL 5 MG TABLET PO PRN (09:34)
[2016-09-16 16:42] LABS: GLUCOSE,POINT OF CARE 117 MG/DL (70-110)
[2016-09-16 18:00] VITALS: BP 135/75
[2016-09-16] MEDS: OLANZapine 10 MG TABLET PO SCH (20:30)
[2016-09-17] MEDS: MetFORMIN HCL 500 MG TABLET PO SCH ×2 (06:37→16:30)
[2016-09-17 06:42] LABS: GLUCOSE COMMENT 1 Received Meds; GLUCOSE,POINT OF CARE 144 MG/DL (70-110)
[2016-09-17] MEDS: INSULIN ASPART 100 UNITS/ML SQ PRN (06:52)
[2016-09-17] MEDS: OMEGA-3/DHA/EPA/FISH OIL 500 MG CAPSULE PO SCH (08:30)
[2016-09-17] MEDS: HALOPERIDOL 5 MG TABLET PO PRN (08:30)
[2016-09-17] MEDS: LITHIUM CARBONATE 300 MG CAPSULE PO SCH ×2 (08:30→16:21)
[2016-09-17] MEDS: LORazepam 2 MG TABLET PO PRN (09:39)
[2016-09-17 10:45] VITALS: BP 117/70
[2016-09-17 16:15] VITALS: BP 133/82
[2016-09-17 16:42] LABS: GLUCOSE,POINT OF CARE 108 MG/DL (70-110)
[2016-09-17] MEDS: OLANZapine 10 MG TABLET PO SCH (20:12)
[2016-09-18 01:24] VITALS: BP 122/69
[2016-09-18 05:22] LABS: GLUCOSE COMMENT 1 Received Meds; GLUCOSE,POINT OF CARE 138 MG/DL (70-110)
[2016-09-18] MEDS: MetFORMIN HCL 500 MG TABLET PO SCH ×2 (07:00→16:27)
[2016-09-18] MEDS: LITHIUM CARBONATE 300 MG CAPSULE PO SCH ×2 (08:46→16:27)
[2016-09-18 09:00] VITALS: BP 125/73
[2016-09-18] MEDS: OMEGA-3/DHA/EPA/FISH OIL 500 MG CAPSULE PO SCH (09:09)
[2016-09-18 16:32] LABS: GLUCOSE COMMENT 1 Received Meds; GLUCOSE,POINT OF CARE 123 MG/DL (70-110)
[2016-09-18 16:56] VITALS: BP 120/70
[2016-09-18] MEDS: OLANZapine 10 MG TABLET PO SCH (20:19)
[2016-09-19 06:03] LABS: GLUCOSE,POINT OF CARE 134 MG/DL (70-110)
[2016-09-19] MEDS: INSULIN ASPART 100 UNITS/ML SQ PRN (06:44)
[2016-09-19] MEDS: MetFORMIN HCL 500 MG TABLET PO SCH ×2 (06:54→16:33)
[2016-09-19 08:00] VITALS: BP 130/91
[2016-09-19] MEDS: LITHIUM CARBONATE 300 MG CAPSULE PO SCH ×2 (08:22→16:33)
[2016-09-19] MEDS: LORazepam 2 MG TABLET PO PRN (08:22)
[2016-09-19] MEDS: OMEGA-3/DHA/EPA/FISH OIL 500 MG CAPSULE PO SCH (08:22)
[2016-09-19 16:42] LABS: GLUCOSE COMMENT 1 Received Meds; GLUCOSE,POINT OF CARE 99 MG/DL (70-110)
[2016-09-19 16:59] VITALS: BP 124/82
[2016-09-19] MEDS: OLANZapine 10 MG TABLET PO SCH (20:22)
[2016-09-20 00:22] VITALS: BP 109/73
[2016-09-20] MEDS: ZOLPIDEM TARTRATE 10 MG TABLET PO PRN (00:22)
[2016-09-20 06:52] LABS: GLUCOSE COMMENT 1 FASTING; GLUCOSE,POINT OF CARE 134 MG/DL (70-110)
[2016-09-20] MEDS: MetFORMIN HCL 500 MG TABLET PO SCH ×2 (06:52→16:40)
[2016-09-20 08:00] VITALS: BP 117/69
[2016-09-20] MEDS: OMEGA-3/DHA/EPA/FISH OIL 500 MG CAPSULE PO SCH (08:13)
[2016-09-20] MEDS: HALOPERIDOL 5 MG TABLET PO PRN (08:13)
[2016-09-20] MEDS: LITHIUM CARBONATE 300 MG CAPSULE PO SCH ×2 (08:13→16:40)
[2016-09-20] MEDS: LORazepam 2 MG TABLET PO PRN ×2 (08:13→16:12)
[2016-09-20 16:14] VITALS: BP 119/81
[2016-09-20 17:13] LABS: GLUCOSE,POINT OF CARE 165 MG/DL (70-110)
[2016-09-20] MEDS: OLANZapine 10 MG TABLET PO SCH (20:13)
[2016-09-21 01:02] VITALS: BP 126/85
[2016-09-21 06:23] LABS: GLUCOSE,POINT OF CARE 132 MG/DL (70-110)
[2016-09-21] MEDS: INSULIN ASPART 100 UNITS/ML SQ PRN (06:55)
[2016-09-21] MEDS: MetFORMIN HCL 500 MG TABLET PO SCH ×2 (07:01→16:29)
[2016-09-21 08:00] VITALS: BP 129/80
[2016-09-21] MEDS: LORazepam 2 MG TABLET PO PRN ×2 (09:09→16:29)
[2016-09-21] MEDS: OMEGA-3/DHA/EPA/FISH OIL 500 MG CAPSULE PO SCH (09:09)
[2016-09-21] MEDS: LITHIUM CARBONATE 300 MG CAPSULE PO SCH ×2 (09:09→16:29)
[2016-09-21] MEDS: HALOPERIDOL 5 MG TABLET PO PRN (09:10)
[2016-09-21 16:27] LABS: GLUCOSE COMMENT 1 Received Meds; GLUCOSE,POINT OF CARE 148 MG/DL (70-110)
[2016-09-21 16:29] VITALS: BP 139/78
[2016-09-21] MEDS: OLANZapine 10 MG TABLET PO SCH (20:18)
[2016-09-22 06:42] LABS: GLUCOSE,POINT OF CARE 128 MG/DL (70-110)
[2016-09-22] MEDS: MetFORMIN HCL 500 MG TABLET PO SCH ×2 (06:56→17:31)
[2016-09-22] MEDS: LITHIUM CARBONATE 300 MG CAPSULE PO SCH ×2 (08:18→15:59)
[2016-09-22] MEDS: OMEGA-3/DHA/EPA/FISH OIL 500 MG CAPSULE PO SCH (08:18)
[2016-09-22 08:29] VITALS: BP 109/78
[2016-09-22] MEDS: LORazepam 2 MG TABLET PO PRN (10:02)
[2016-09-22 16:24] VITALS: BP 129/65
[2016-09-22 16:28] LABS: GLUCOSE COMMENT 1 Received Meds; GLUCOSE,POINT OF CARE 151 MG/DL (70-110)
[2016-09-22] MEDS: OLANZapine 10 MG TABLET PO SCH (20:19)
[2016-09-23 02:13] VITALS: BP 104/70
[2016-09-23] MEDS: MetFORMIN HCL 500 MG TABLET PO SCH ×2 (07:10→17:02)
[2016-09-23] MEDS: LITHIUM CARBONATE 300 MG CAPSULE PO SCH ×2 (08:17→17:03)
[2016-09-23 09:00] VITALS: BP 111/73
[2016-09-23] MEDS: OMEGA-3/DHA/EPA/FISH OIL 500 MG CAPSULE PO SCH (13:48)
[2016-09-23 16:45] VITALS: BP 133/83
[2016-09-23 16:47] LABS: GLUCOSE,POINT OF CARE 133 MG/DL (70-110)
[2016-09-23] MEDS: OLANZapine 10 MG TABLET PO SCH (22:17)
[2016-09-24] MEDS: MetFORMIN HCL 500 MG TABLET PO SCH ×2 (06:54→16:31)
[2016-09-24] MEDS: INSULIN ASPART 100 UNITS/ML SQ PRN (06:56)
[2016-09-24 06:57] LABS: GLUCOSE,POINT OF CARE 142 MG/DL (70-110)
[2016-09-24] MEDS: LITHIUM CARBONATE 300 MG CAPSULE PO SCH ×2 (08:08→16:17)
[2016-09-24] MEDS: OMEGA-3/DHA/EPA/FISH OIL 500 MG CAPSULE PO SCH (08:08)
[2016-09-24 08:15] VITALS: BP 143/84
[2016-09-24 16:38] VITALS: BP 127/89
[2016-09-24 16:38] LABS: GLUCOSE,POINT OF CARE 97 MG/DL (70-110)
[2016-09-24] MEDS: OLANZapine 10 MG TABLET PO SCH (20:30)
[2016-09-24] MEDS: ZOLPIDEM TARTRATE 10 MG TABLET PO PRN (23:17)
[2016-09-25] MEDS: MetFORMIN HCL 500 MG TABLET PO SCH (07:30)
[2016-09-25 08:30] VITALS: BP 130/69
[2016-09-25] MEDS: OMEGA-3/DHA/EPA/FISH OIL 500 MG CAPSULE PO SCH (09:13)
[2016-09-25] MEDS: LITHIUM CARBONATE 300 MG CAPSULE PO SCH ×2 (09:13→16:02)
[2016-09-25] MEDS: HALOPERIDOL 5 MG TABLET PO PRN (12:46)
[2016-09-25] MEDS: LORazepam 2 MG TABLET PO PRN (12:46)
[2016-09-25 16:07] VITALS: BP 123/84
[2016-09-25 16:07] LABS: GLUCOSE,POINT OF CARE 107 MG/DL (70-110)
[2016-09-25] MEDS: OLANZapine 10 MG TABLET PO SCH (20:12)
[2016-09-26 07:07] LABS: GLUCOSE COMMENT 1 FASTING; GLUCOSE,POINT OF CARE 136 MG/DL (70-110)
[2016-09-26 08:30] VITALS: BP 123/73
[2016-09-26] MEDS: OMEGA-3/DHA/EPA/FISH OIL 500 MG CAPSULE PO SCH (09:11)
[2016-09-26] MEDS: LITHIUM CARBONATE 300 MG CAPSULE PO SCH ×2 (09:11→15:53)
[2016-09-26] MEDS: HALOPERIDOL 5 MG TABLET PO PRN ×2 (09:19→16:22)
[2016-09-26] MEDS: LORazepam 2 MG TABLET PO PRN ×2 (09:19→16:22)
[2016-09-26 16:02] LABS: GLUCOSE COMMENT 1 Received Meds; GLUCOSE,POINT OF CARE 121 MG/DL (70-110)
[2016-09-26 17:06] VITALS: BP 130/77
[2016-09-26] MEDS: OLANZapine 10 MG TABLET PO SCH (20:08)
[2016-09-26] MEDS: ZOLPIDEM TARTRATE 10 MG TABLET PO PRN (21:57)
[2016-09-27 03:35] VITALS: BP 128/88
[2016-09-27 05:52] LABS: GLUCOSE COMMENT 1 Received Meds; GLUCOSE,POINT OF CARE 152 MG/DL (70-110)
[2016-09-27] MEDS: INSULIN ASPART 100 UNITS/ML SQ PRN ×2 (07:15→17:00)
[2016-09-27] MEDS: OMEGA-3/DHA/EPA/FISH OIL 500 MG CAPSULE PO SCH (08:14)
[2016-09-27] MEDS: LITHIUM CARBONATE 300 MG CAPSULE PO SCH ×2 (08:14→16:36)
[2016-09-27 09:00] VITALS: BP 144/77
[2016-09-27] MEDS: LORazepam 2 MG TABLET PO PRN (10:58)
[2016-09-27 16:48] LABS: GLUCOSE COMMENT 1 Received Meds; GLUCOSE,POINT OF CARE 149 MG/DL (70-110)
[2016-09-27 17:00] VITALS: BP 127/85
[2016-09-27] MEDS: OLANZapine 10 MG TABLET PO SCH (21:52)
[2016-09-28 05:57] LABS: GLUCOSE,POINT OF CARE 122 MG/DL (70-110)
[2016-09-28] MEDS: LITHIUM CARBONATE 300 MG CAPSULE PO SCH ×2 (09:57→16:43)
[2016-09-28] MEDS: OMEGA-3/DHA/EPA/FISH OIL 500 MG CAPSULE PO SCH (09:57)
[2016-09-28 16:27] LABS: GLUCOSE,POINT OF CARE 146 MG/DL (70-110)
[2016-09-28 17:12] VITALS: BP 138/90
[2016-09-28] MEDS: OLANZapine 10 MG TABLET PO SCH (20:44)
[2016-09-29 05:58] LABS: GLUCOSE COMMENT 1 Received Meds; GLUCOSE,POINT OF CARE 126 MG/DL (70-110)
[2016-09-29 08:00] VITALS: BP 114/78
[2016-09-29] MEDS: OMEGA-3/DHA/EPA/FISH OIL 500 MG CAPSULE PO SCH (08:18)
[2016-09-29] MEDS: LITHIUM CARBONATE 300 MG CAPSULE PO SCH ×2 (08:18→16:04)
[2016-09-29] MEDS: LORazepam 2 MG TABLET PO PRN (12:23)
[2016-09-29 16:30] VITALS: BP 128/74
[2016-09-29 16:32] LABS: GLUCOSE,POINT OF CARE 119 MG/DL (70-110)
[2016-09-29] MEDS: OLANZapine 10 MG TABLET PO SCH (21:22)
[2016-09-30] MEDS: INSULIN ASPART 100 UNITS/ML SQ PRN (06:57)
[2016-09-30 08:00] VITALS: BP 126/73
[2016-09-30] MEDS: LITHIUM CARBONATE 300 MG CAPSULE PO SCH ×2 (09:01→16:03)
[2016-09-30] MEDS: OMEGA-3/DHA/EPA/FISH OIL 500 MG CAPSULE PO SCH (09:01)
[2016-09-30 17:57] VITALS: BP 139/74
[2016-09-30] MEDS: OLANZapine 10 MG TABLET PO SCH (21:04)
[2016-10-01] MEDS: OMEGA-3/DHA/EPA/FISH OIL 500 MG CAPSULE PO SCH (08:43)
[2016-10-01] MEDS: LITHIUM CARBONATE 300 MG CAPSULE PO SCH ×2 (08:43→16:05)
[2016-10-01 09:34] VITALS: BP 125/70
[2016-10-01] MEDS: LORazepam 2 MG TABLET PO PRN (09:56)
[2016-10-01] MEDS: HALOPERIDOL 5 MG TABLET PO PRN (09:56)
[2016-10-01 18:11] VITALS: BP 118/72
[2016-10-01] MEDS: OLANZapine 10 MG TABLET PO SCH (20:28)
[2016-10-02] MEDS: LITHIUM CARBONATE 300 MG CAPSULE PO SCH ×2 (08:04→16:40)
[2016-10-02] MEDS: OMEGA-3/DHA/EPA/FISH OIL 500 MG CAPSULE PO SCH (08:04)
[2016-10-02 08:21] VITALS: BP 131/74
[2016-10-02 09:36] LABS: GLUCOSE,POINT OF CARE 134 MG/DL (70-110)
[2016-10-02 10:22] LABS: GLUCOSE,POINT OF CARE 124 MG/DL (70-110)
[2016-10-02] MEDS: LORazepam 2 MG TABLET PO PRN (11:02)
[2016-10-02 16:39] VITALS: BP 132/78
[2016-10-02] MEDS: INSULIN ASPART 100 UNITS/ML SQ PRN (17:28)
[2016-10-02 17:48] LABS: GLUCOSE,POINT OF CARE 144 MG/DL (70-110)
[2016-10-02 19:13] LABS: GLUCOSE COMMENT 1 FASTING; GLUCOSE,POINT OF CARE 133 MG/DL (70-110)
[2016-10-02 21:17] LABS: GLUCOSE,POINT OF CARE 130 MG/DL (70-110)
[2016-10-02] MEDS: OLANZapine 10 MG TABLET PO SCH (21:48)
[2016-10-03 05:48] LABS: GLUCOSE,POINT OF CARE 147 MG/DL (70-110)
[2016-10-03] MEDS: INSULIN ASPART 100 UNITS/ML SQ PRN (07:05)
[2016-10-03 08:15] VITALS: BP 102/73
[2016-10-03] MEDS: OMEGA-3/DHA/EPA/FISH OIL 500 MG CAPSULE PO SCH (09:35)
[2016-10-03] MEDS: LITHIUM CARBONATE 300 MG CAPSULE PO SCH ×2 (09:36→16:04)
[2016-10-03] MEDS: HALOPERIDOL 5 MG TABLET PO PRN (16:48)
[2016-10-03] MEDS: LORazepam 2 MG TABLET PO PRN (16:48)
[2016-10-03 19:51] VITALS: BP 127/81
[2016-10-03] MEDS: OLANZapine 10 MG TABLET PO SCH (20:07)
[2016-10-04 05:48] LABS: GLUCOSE COMMENT 1 Received Meds; GLUCOSE,POINT OF CARE 144 MG/DL (70-110)
[2016-10-04] MEDS: INSULIN ASPART 100 UNITS/ML SQ PRN (07:05)
[2016-10-04] MEDS: OMEGA-3/DHA/EPA/FISH OIL 500 MG CAPSULE PO SCH (08:35)
[2016-10-04] MEDS: LITHIUM CARBONATE 300 MG CAPSULE PO SCH ×2 (08:35→17:02)
[2016-10-04 08:47] VITALS: BP 143/75
[2016-10-04 17:36] VITALS: BP 120/78
[2016-10-04] MEDS: OLANZapine 10 MG TABLET PO SCH (20:29)
[2016-10-05 05:58] LABS: GLUCOSE,POINT OF CARE 141 MG/DL (70-110)
[2016-10-05] MEDS: INSULIN ASPART 100 UNITS/ML SQ PRN (07:21)
[2016-10-05 08:24] VITALS: BP 134/88
[2016-10-05] MEDS: LITHIUM CARBONATE 300 MG CAPSULE PO SCH ×2 (08:59→16:02)
[2016-10-05] MEDS: OMEGA-3/DHA/EPA/FISH OIL 500 MG CAPSULE PO SCH (08:59)
[2016-10-05] MEDS: LORazepam 2 MG TABLET PO PRN (15:07)
[2016-10-05 16:48] VITALS: BP 125/83
[2016-10-05] MEDS: OLANZapine 10 MG TABLET PO SCH (20:50)
[2016-10-06] MEDS: LORazepam 2 MG TABLET PO PRN (00:10)
[2016-10-06 05:47] LABS: GLUCOSE,POINT OF CARE 147 MG/DL (70-110)
[2016-10-06] MEDS: INSULIN ASPART 100 UNITS/ML SQ PRN (07:03)
[2016-10-06 08:05] VITALS: BP 152/91
[2016-10-06] MEDS: OMEGA-3/DHA/EPA/FISH OIL 500 MG CAPSULE PO SCH (08:22)
[2016-10-06] MEDS: LITHIUM CARBONATE 300 MG CAPSULE PO SCH ×2 (08:22→15:58)
[2016-10-06 17:13] VITALS: BP 124/82
[2016-10-06] MEDS: OLANZapine 10 MG TABLET PO SCH (20:16)
[2016-10-07 05:37] LABS: GLUCOSE COMMENT 1 Received Meds; GLUCOSE,POINT OF CARE 123 MG/DL (70-110)
[2016-10-07 08:15] VITALS: BP 124/75
[2016-10-07] MEDS: OMEGA-3/DHA/EPA/FISH OIL 500 MG CAPSULE PO SCH (08:36)
[2016-10-07] MEDS: LITHIUM CARBONATE 300 MG CAPSULE PO SCH ×2 (08:36→16:24)
[2016-10-07] MEDS: LORazepam 2 MG TABLET PO PRN (14:06)
[2016-10-07 18:36] VITALS: BP 125/71
[2016-10-07] MEDS: OLANZapine 10 MG TABLET PO SCH (20:03)
[2016-10-08 07:32] LABS: GLUCOSE,POINT OF CARE 139 MG/DL (70-110)
[2016-10-08 08:15] VITALS: BP 123/75
[2016-10-08] MEDS: LITHIUM CARBONATE 300 MG CAPSULE PO SCH ×2 (09:00→16:49)
[2016-10-08] MEDS: OMEGA-3/DHA/EPA/FISH OIL 500 MG CAPSULE PO SCH (09:00)
[2016-10-08 19:16] VITALS: BP 133/84
[2016-10-08] MEDS: OLANZapine 10 MG TABLET PO SCH (20:59)
[2016-10-09] MEDS: OMEGA-3/DHA/EPA/FISH OIL 500 MG CAPSULE PO SCH (08:40)
[2016-10-09] MEDS: LITHIUM CARBONATE 300 MG CAPSULE PO SCH ×2 (08:40→16:00)
[2016-10-09 09:00] VITALS: BP 149/72
[2016-10-09] MEDS: LORazepam 2 MG TABLET PO PRN (13:00)
[2016-10-09 17:00] VITALS: BP 134/92
[2016-10-09] MEDS: OLANZapine 10 MG TABLET PO SCH (20:43)
[2016-10-10 05:28] LABS: GLUCOSE COMMENT 1 FASTING; GLUCOSE,POINT OF CARE 130 MG/DL (70-110)
[2016-10-10] MEDS: OMEGA-3/DHA/EPA/FISH OIL 500 MG CAPSULE PO SCH (08:51)
[2016-10-10] MEDS: LITHIUM CARBONATE 300 MG CAPSULE PO SCH ×2 (08:51→16:22)
[2016-10-10] MEDS: HALOPERIDOL 5 MG TABLET PO PRN (08:52)
[2016-10-10] MEDS: LORazepam 2 MG TABLET PO PRN (08:54)
[2016-10-10 09:33] VITALS: BP 123/97
[2016-10-10 16:33] VITALS: BP 124/74
[2016-10-10] MEDS: OLANZapine 10 MG TABLET PO SCH (20:23)
[2016-10-11 06:03] LABS: GLUCOSE,POINT OF CARE 125 MG/DL (70-110)
[2016-10-11 08:02] VITALS: BP 122/74
[2016-10-11] MEDS: LITHIUM CARBONATE 300 MG CAPSULE PO SCH ×2 (08:41→17:01)
[2016-10-11] MEDS: OMEGA-3/DHA/EPA/FISH OIL 500 MG CAPSULE PO SCH (08:41)
[2016-10-11] MEDS: LORazepam 2 MG TABLET PO PRN (14:48)
[2016-10-11 17:00] VITALS: BP 128/58
[2016-10-11] MEDS: MAG HYDROX/AL HYDROX/SIMETH ES 30 ML SUSPENSION UDCUP PO PRN (18:39)
[2016-10-11] MEDS: OLANZapine 10 MG TABLET PO SCH (21:00)
[2016-10-12 01:48] VITALS: BP 117/67
[2016-10-12 05:33] LABS: GLUCOSE,POINT OF CARE 120 MG/DL (70-110)
[2016-10-12 08:10] VITALS: BP 118/58
[2016-10-12] MEDS: OMEGA-3/DHA/EPA/FISH OIL 500 MG CAPSULE PO SCH (09:06)
[2016-10-12] MEDS: LITHIUM CARBONATE 300 MG CAPSULE PO SCH ×2 (09:06→16:14)
[2016-10-12 17:16] VITALS: BP 126/82
[2016-10-12] MEDS: OLANZapine 10 MG TABLET PO SCH (20:26)
[2016-10-13 05:32] LABS: GLUCOSE,POINT OF CARE 144 MG/DL (70-110)
[2016-10-13] MEDS: INSULIN ASPART 100 UNITS/ML SQ PRN (07:13)
[2016-10-13 08:15] VITALS: BP 128/80
[2016-10-13] MEDS: LITHIUM CARBONATE 300 MG CAPSULE PO SCH ×2 (08:45→16:30)
[2016-10-13] MEDS: OMEGA-3/DHA/EPA/FISH OIL 500 MG CAPSULE PO SCH (08:46)
[2016-10-13 16:55] VITALS: BP 118/77
[2016-10-13] MEDS: OLANZapine 10 MG TABLET PO SCH (20:47)
[2016-10-14 08:23] LABS: GLUCOSE,POINT OF CARE 157 MG/DL (70-110)
[2016-10-14 08:56] VITALS: BP 130/75
[2016-10-14] MEDS: OMEGA-3/DHA/EPA/FISH OIL 500 MG CAPSULE PO SCH (09:34)
[2016-10-14] MEDS: LITHIUM CARBONATE 300 MG CAPSULE PO SCH ×2 (09:34→16:07)
[2016-10-14 19:50] VITALS: BP 117/82
[2016-10-14] MEDS: OLANZapine 10 MG TABLET PO SCH (20:19)
[2016-10-14] MEDS: LORazepam 2 MG TABLET PO PRN (21:43)
[2016-10-15 05:37] LABS: GLUCOSE,POINT OF CARE 134 MG/DL (70-110)
[2016-10-15] MEDS: LITHIUM CARBONATE 300 MG CAPSULE PO SCH ×2 (09:13→16:32)
[2016-10-15] MEDS: OMEGA-3/DHA/EPA/FISH OIL 500 MG CAPSULE PO SCH (09:13)
[2016-10-15 09:49] VITALS: BP 134/83
[2016-10-15 17:32] VITALS: BP 126/76
[2016-10-15] MEDS: OLANZapine 10 MG TABLET PO SCH (20:56)
[2016-10-16 07:13] LABS: GLUCOSE,POINT OF CARE 122 MG/DL (70-110)
[2016-10-16 08:00] VITALS: BP 130/75
[2016-10-16] MEDS: LITHIUM CARBONATE 300 MG CAPSULE PO SCH ×2 (09:19→16:09)
[2016-10-16] MEDS: OMEGA-3/DHA/EPA/FISH OIL 500 MG CAPSULE PO SCH (09:19)
[2016-10-16 17:04] VITALS: BP 145/84
[2016-10-16] MEDS: OLANZapine 10 MG TABLET PO SCH (20:21)
[2016-10-17] MEDS: LITHIUM CARBONATE 300 MG CAPSULE PO SCH ×2 (08:30→16:04)
[2016-10-17] MEDS: OMEGA-3/DHA/EPA/FISH OIL 500 MG CAPSULE PO SCH (08:30)
[2016-10-17 08:53] VITALS: BP 112/77
[2016-10-17] MEDS: LORazepam 2 MG TABLET PO PRN (16:04)
[2016-10-17 17:00] VITALS: BP 126/83
[2016-10-17] MEDS: OLANZapine 10 MG TABLET PO SCH (20:34)
[2016-10-18 05:33] LABS: GLUCOSE,POINT OF CARE 134 MG/DL (70-110)
[2016-10-18] MEDS: INSULIN ASPART 100 UNITS/ML SQ PRN (06:54)
[2016-10-18] MEDS: OMEGA-3/DHA/EPA/FISH OIL 500 MG CAPSULE PO SCH (08:59)
[2016-10-18] MEDS: LITHIUM CARBONATE 300 MG CAPSULE PO SCH ×2 (08:59→16:06)
[2016-10-18 10:44] VITALS: BP 128/88
[2016-10-18 16:52] VITALS: BP 129/78
[2016-10-18] MEDS: OLANZapine 10 MG TABLET PO SCH (20:00)
[2016-10-19 05:28] LABS: GLUCOSE,POINT OF CARE 130 MG/DL (70-110)
[2016-10-19] MEDS: OMEGA-3/DHA/EPA/FISH OIL 500 MG CAPSULE PO SCH (08:34)
[2016-10-19] MEDS: LITHIUM CARBONATE 300 MG CAPSULE PO SCH ×2 (08:34→16:22)
[2016-10-19 09:33] VITALS: BP 123/85
[2016-10-19] MEDS ORDERED: HEPATITIS A VACCINE, INACTI [ADULT] 1,440 UNITS/ML VIAL IM ONE (15:00)
[2016-10-19 16:39] VITALS: BP 117/61
[2016-10-19] MEDS: OLANZapine 10 MG TABLET PO SCH (20:47)
[2016-10-20 05:52] LABS: GLUCOSE COMMENT 1 Received Meds; GLUCOSE,POINT OF CARE 131 MG/DL (70-110)
[2016-10-20 08:45] VITALS: BP 103/55
[2016-10-20] MEDS: LITHIUM CARBONATE 300 MG CAPSULE PO SCH ×2 (09:03→19:57)
[2016-10-20] MEDS: OMEGA-3/DHA/EPA/FISH OIL 500 MG CAPSULE PO SCH (09:04)
[2016-10-20 17:00] VITALS: BP 114/72
[2016-10-20] MEDS: OLANZapine 10 MG TABLET PO SCH (20:20)
[2016-10-21 05:38] LABS: GLUCOSE,POINT OF CARE 131 MG/DL (70-110)
[2016-10-21] MEDS: OMEGA-3/DHA/EPA/FISH OIL 500 MG CAPSULE PO SCH (09:13)
[2016-10-21] MEDS: LITHIUM CARBONATE 300 MG CAPSULE PO SCH ×2 (09:13→16:22)
[2016-10-21 10:35] VITALS: BP 124/88
[2016-10-21] MEDS: LORazepam 2 MG TABLET PO PRN (16:22)
[2016-10-21 16:26] VITALS: BP 134/85
[2016-10-21] MEDS: OLANZapine 10 MG TABLET PO SCH (20:41)
[2016-10-22 05:52] LABS: GLUCOSE COMMENT 1 Received Meds; GLUCOSE,POINT OF CARE 143 MG/DL (70-110)
[2016-10-22] MEDS: INSULIN ASPART 100 UNITS/ML SQ PRN (06:37)
[2016-10-22 08:00] VITALS: BP 125/80
[2016-10-22] MEDS: LITHIUM CARBONATE 300 MG CAPSULE PO SCH ×2 (08:40→16:07)
[2016-10-22] MEDS: OMEGA-3/DHA/EPA/FISH OIL 500 MG CAPSULE PO SCH (08:40)
[2016-10-22 18:37] VITALS: BP 127/86
[2016-10-22] MEDS: OLANZapine 10 MG TABLET PO SCH ×2 (21:00→21:25)
[2016-10-23 06:33] LABS: GLUCOSE,POINT OF CARE 130 MG/DL (70-110)
[2016-10-23] MEDS: LITHIUM CARBONATE 300 MG CAPSULE PO SCH ×2 (08:20→16:07)
[2016-10-23] MEDS: OMEGA-3/DHA/EPA/FISH OIL 500 MG CAPSULE PO SCH (08:20)
[2016-10-23 08:35] VITALS: BP 112/63
[2016-10-23 19:48] VITALS: BP 130/88
[2016-10-23] MEDS: OLANZapine 10 MG TABLET PO SCH (20:29)
[2016-10-24 05:42] LABS: GLUCOSE,POINT OF CARE 132 MG/DL (70-110)
[2016-10-24] MEDS: INSULIN ASPART 100 UNITS/ML SQ PRN (06:31)
[2016-10-24] MEDS: OMEGA-3/DHA/EPA/FISH OIL 500 MG CAPSULE PO SCH (09:00)
[2016-10-24] MEDS: LITHIUM CARBONATE 300 MG CAPSULE PO SCH ×2 (09:00→16:07)
[2016-10-24 17:08] VITALS: BP 132/91
[2016-10-24] MEDS: OLANZapine 10 MG TABLET PO SCH (20:08)
[2016-10-25 01:30] VITALS: BP 116/79
[2016-10-25] MEDS: ZOLPIDEM TARTRATE 10 MG TABLET PO PRN (01:32)
[2016-10-25] MEDS: LORazepam 2 MG TABLET PO PRN ×2 (01:32→09:38)
[2016-10-25 06:12] LABS: GLUCOSE COMMENT 1 Received Meds; GLUCOSE,POINT OF CARE 142 MG/DL (70-110)
[2016-10-25] MEDS: INSULIN ASPART 100 UNITS/ML SQ PRN (06:33)
[2016-10-25 08:05] VITALS: BP 120/76
[2016-10-25] MEDS: LITHIUM CARBONATE 300 MG CAPSULE PO SCH ×2 (08:19→16:05)
[2016-10-25] MEDS: OMEGA-3/DHA/EPA/FISH OIL 500 MG CAPSULE PO SCH (08:20)
[2016-10-25] MEDS: HALOPERIDOL 5 MG TABLET PO PRN (09:38)
[2016-10-25] MEDS: MAG HYDROX/AL HYDROX/SIMETH ES 30 ML SUSPENSION UDCUP PO PRN (14:00)
[2016-10-25 19:46] VITALS: BP 129/77
[2016-10-25] MEDS: OLANZapine 10 MG TABLET PO SCH (20:13)
[2016-10-26 02:09] VITALS: BP 124/77
[2016-10-26 05:32] LABS: GLUCOSE COMMENT 1 Received Meds; GLUCOSE,POINT OF CARE 136 MG/DL (70-110)
[2016-10-26] MEDS: INSULIN ASPART 100 UNITS/ML SQ PRN (06:33)
[2016-10-26 08:30] VITALS: BP 127/98
[2016-10-26] MEDS: OMEGA-3/DHA/EPA/FISH OIL 500 MG CAPSULE PO SCH (08:30)
[2016-10-26] MEDS: LITHIUM CARBONATE 300 MG CAPSULE PO SCH ×2 (08:31→16:16)
[2016-10-26 16:58] VITALS: BP 128/84
[2016-10-26] MEDS: OLANZapine 10 MG TABLET PO SCH (20:33)
[2016-10-27 06:02] LABS: GLUCOSE,POINT OF CARE 147 MG/DL (70-110)
[2016-10-27 08:09] VITALS: BP 119/74
[2016-10-27] MEDS: LITHIUM CARBONATE 300 MG CAPSULE PO SCH ×2 (08:10→16:20)
[2016-10-27] MEDS: OMEGA-3/DHA/EPA/FISH OIL 500 MG CAPSULE PO SCH (08:10)
[2016-10-27] MEDS: LORazepam 2 MG TABLET PO PRN (11:07)
[2016-10-27] MEDS: MAG HYDROX/AL HYDROX/SIMETH ES 30 ML SUSPENSION UDCUP PO PRN (14:04)
[2016-10-27 17:05] VITALS: BP 124/74
[2016-10-27] MEDS: OLANZapine 10 MG TABLET PO SCH (20:15)
[2016-10-28 06:08] LABS: GLUCOSE,POINT OF CARE 139 MG/DL (70-110)
[2016-10-28] MEDS: INSULIN ASPART 100 UNITS/ML SQ PRN (06:55)
[2016-10-28 08:00] VITALS: BP 106/66
[2016-10-28] MEDS: LITHIUM CARBONATE 300 MG CAPSULE PO SCH ×2 (09:02→16:24)
[2016-10-28] MEDS: OMEGA-3/DHA/EPA/FISH OIL 500 MG CAPSULE PO SCH (09:02)
[2016-10-28] MEDS: LORazepam 2 MG TABLET PO PRN (15:39)
[2016-10-28] MEDS: CIPROFLOXACIN HCL 0.2%/HYDROCORT 1% 10 ML OTIC SUSPENSION AU SCH (16:24)
[2016-10-28] MEDS: OLANZapine 10 MG TABLET PO SCH (20:50)
[2016-10-28 23:13] VITALS: BP 130/81
[2016-10-29 05:57] LABS: GLUCOSE,POINT OF CARE 127 MG/DL (70-110)
[2016-10-29] MEDS: LITHIUM CARBONATE 300 MG CAPSULE PO SCH ×2 (08:57→16:51)
[2016-10-29] MEDS: CIPROFLOXACIN HCL 0.2%/HYDROCORT 1% 10 ML OTIC SUSPENSION AU SCH ×2 (08:57→16:51)
[2016-10-29] MEDS: OMEGA-3/DHA/EPA/FISH OIL 500 MG CAPSULE PO SCH (08:57)
[2016-10-29 09:29] VITALS: BP 109/73
[2016-10-29 18:21] VITALS: BP 140/77
[2016-10-29] MEDS: OLANZapine 10 MG TABLET PO SCH (20:25)
[2016-10-30 05:32] LABS: GLUCOSE,POINT OF CARE 143 MG/DL (70-110)
[2016-10-30] MEDS: OMEGA-3/DHA/EPA/FISH OIL 500 MG CAPSULE PO SCH (07:56)
[2016-10-30] MEDS: CIPROFLOXACIN HCL 0.2%/HYDROCORT 1% 10 ML OTIC SUSPENSION AU SCH ×2 (07:57→16:26)
[2016-10-30] MEDS: LITHIUM CARBONATE 300 MG CAPSULE PO SCH ×2 (07:57→16:26)
[2016-10-30 16:30] VITALS: BP 127/77
[2016-10-30] MEDS: LORazepam 2 MG TABLET PO PRN (20:16)
[2016-10-30] MEDS: OLANZapine 10 MG TABLET PO SCH (20:16)
[2016-10-30] MEDS: ZOLPIDEM TARTRATE 10 MG TABLET PO PRN (21:33)
[2016-10-31] MEDS: INSULIN ASPART 100 UNITS/ML SQ PRN (07:15)
[2016-10-31 07:17] LABS: GLUCOSE,POINT OF CARE 118 MG/DL (70-110)
[2016-10-31 08:00] VITALS: BP 123/77
[2016-10-31] MEDS: LITHIUM CARBONATE 300 MG CAPSULE PO SCH ×2 (08:25→16:32)
[2016-10-31] MEDS: OMEGA-3/DHA/EPA/FISH OIL 500 MG CAPSULE PO SCH (08:25)
[2016-10-31] MEDS: CIPROFLOXACIN HCL 0.2%/HYDROCORT 1% 10 ML OTIC SUSPENSION AU SCH ×2 (09:00→16:33)
[2016-10-31] MEDS: LORazepam 2 MG TABLET PO PRN (11:24)
[2016-10-31] MEDS: MAG HYDROX/AL HYDROX/SIMETH ES 30 ML SUSPENSION UDCUP PO PRN (14:28)
[2016-10-31 16:15] VITALS: BP 129/79
[2016-10-31] MEDS: OLANZapine 10 MG TABLET PO SCH (20:40)
[2016-11-01 05:37] LABS: GLUCOSE COMMENT 1 Received Meds; GLUCOSE,POINT OF CARE 121 MG/DL (70-110)
[2016-11-01] MEDS: INSULIN ASPART 100 UNITS/ML SQ PRN (06:37)
[2016-11-01] MEDS: OMEGA-3/DHA/EPA/FISH OIL 500 MG CAPSULE PO SCH (08:21)
[2016-11-01] MEDS: LITHIUM CARBONATE 300 MG CAPSULE PO SCH ×2 (08:21→16:23)
[2016-11-01] MEDS: CIPROFLOXACIN HCL 0.2%/HYDROCORT 1% 10 ML OTIC SUSPENSION AU SCH ×2 (08:22→16:23)
[2016-11-01 09:00] VITALS: BP 127/70
[2016-11-01 16:18] VITALS: BP 125/74
[2016-11-01] MEDS: LORazepam 2 MG TABLET PO PRN (16:52)
[2016-11-01] MEDS: HALOPERIDOL 5 MG TABLET PO PRN (16:52)
[2016-11-01] MEDS: OLANZapine 10 MG TABLET PO SCH (21:07)
[2016-11-02 05:33] LABS: GLUCOSE,POINT OF CARE 127 MG/DL (70-110)
[2016-11-02 08:01] VITALS: BP 127/85
[2016-11-02] MEDS: OMEGA-3/DHA/EPA/FISH OIL 500 MG CAPSULE PO SCH (08:12)
[2016-11-02] MEDS: LITHIUM CARBONATE 300 MG CAPSULE PO SCH ×2 (08:12→17:30)
[2016-11-02] MEDS: CIPROFLOXACIN HCL 0.2%/HYDROCORT 1% 10 ML OTIC SUSPENSION AU SCH ×2 (08:14→17:30)
[2016-11-02] MEDS: LORazepam 2 MG TABLET PO PRN (14:26)
[2016-11-02 16:34] VITALS: BP 144/79
[2016-11-02] MEDS: OLANZapine 10 MG TABLET PO SCH (20:01)
[2016-11-03 06:17] LABS: GLUCOSE COMMENT 1 Received Meds; GLUCOSE,POINT OF CARE 133 MG/DL (70-110)
[2016-11-03 08:23] VITALS: BP 119/77
[2016-11-03] MEDS: LITHIUM CARBONATE 300 MG CAPSULE PO SCH ×2 (08:48→16:54)
[2016-11-03] MEDS: CIPROFLOXACIN HCL 0.2%/HYDROCORT 1% 10 ML OTIC SUSPENSION AU SCH ×2 (08:48→17:00)
[2016-11-03] MEDS: OMEGA-3/DHA/EPA/FISH OIL 500 MG CAPSULE PO SCH (08:48)
[2016-11-03] MEDS: HALOPERIDOL 5 MG TABLET PO PRN (15:59)
[2016-11-03] MEDS: LORazepam 2 MG TABLET PO PRN (15:59)
[2016-11-03] MEDS: OLANZapine 10 MG TABLET PO SCH (16:55)
[2016-11-03 20:24] VITALS: BP 134/87
[2016-11-04 05:47] LABS: GLUCOSE COMMENT 1 FASTING; GLUCOSE,POINT OF CARE 128 MG/DL (70-110)
[2016-11-04 08:15] VITALS: BP 139/77
[2016-11-04] MEDS: CIPROFLOXACIN HCL 0.2%/HYDROCORT 1% 10 ML OTIC SUSPENSION AU SCH ×2 (08:49→16:13)
[2016-11-04] MEDS: OMEGA-3/DHA/EPA/FISH OIL 500 MG CAPSULE PO SCH (08:49)
[2016-11-04] MEDS: LITHIUM CARBONATE 300 MG CAPSULE PO SCH ×2 (08:49→16:12)
[2016-11-04] MEDS: OLANZapine 10 MG TABLET PO SCH (16:12)
[2016-11-04 16:47] VITALS: BP 126/80
[2016-11-05 06:07] LABS: GLUCOSE,POINT OF CARE 133 MG/DL (70-110)
[2016-11-05 08:15] VITALS: BP 140/88
[2016-11-05] MEDS: LITHIUM CARBONATE 300 MG CAPSULE PO SCH ×2 (08:40→16:47)
[2016-11-05] MEDS: CIPROFLOXACIN HCL 0.2%/HYDROCORT 1% 10 ML OTIC SUSPENSION AU SCH ×2 (08:40→16:49)
[2016-11-05] MEDS: OMEGA-3/DHA/EPA/FISH OIL 500 MG CAPSULE PO SCH (08:40)
[2016-11-05] MEDS: LORazepam 2 MG TABLET PO PRN (16:47)
[2016-11-05] MEDS: OLANZapine 10 MG TABLET PO SCH (16:48)
[2016-11-05 17:40] VITALS: BP 139/82
[2016-11-06 05:52] LABS: GLUCOSE,POINT OF CARE 131 MG/DL (70-110)
[2016-11-06] MEDS: INSULIN ASPART 100 UNITS/ML SQ PRN (06:30)
[2016-11-06] MEDS: OMEGA-3/DHA/EPA/FISH OIL 500 MG CAPSULE PO SCH (08:11)
[2016-11-06] MEDS: CIPROFLOXACIN HCL 0.2%/HYDROCORT 1% 10 ML OTIC SUSPENSION AU SCH ×2 (08:11→17:00)
[2016-11-06] MEDS: LITHIUM CARBONATE 300 MG CAPSULE PO SCH ×2 (08:11→16:26)
[2016-11-06 08:42] VITALS: BP 118/83
[2016-11-06] MEDS: OLANZapine 10 MG TABLET PO SCH (16:26)
[2016-11-06 16:39] VITALS: BP 135/89
[2016-11-07] MEDS: LORazepam 2 MG TABLET PO PRN (01:27)
[2016-11-07 01:29] VITALS: BP 100/70
[2016-11-07 05:47] LABS: GLUCOSE,POINT OF CARE 121 MG/DL (70-110)
[2016-11-07] MEDS: INSULIN ASPART 100 UNITS/ML SQ PRN (07:09)
[2016-11-07] MEDS: OMEGA-3/DHA/EPA/FISH OIL 500 MG CAPSULE PO SCH (08:24)
[2016-11-07] MEDS: CIPROFLOXACIN HCL 0.2%/HYDROCORT 1% 10 ML OTIC SUSPENSION AU SCH (08:24)
[2016-11-07] MEDS: LITHIUM CARBONATE 300 MG CAPSULE PO SCH ×2 (08:24→16:00)
[2016-11-07 09:17] VITALS: BP 117/70
[2016-11-07] MEDS: OLANZapine 10 MG TABLET PO SCH (16:02)
[2016-11-07 16:13] VITALS: BP 130/85
[2016-11-08 00:01] VITALS: BP 115/75
[2016-11-08] MEDS: LORazepam 2 MG TABLET PO PRN ×3 (00:01→17:20)
[2016-11-08 06:02] LABS: GLUCOSE,POINT OF CARE 89 MG/DL (70-110)
[2016-11-08] MEDS: LITHIUM CARBONATE 300 MG CAPSULE PO SCH ×2 (08:08→16:28)
[2016-11-08] MEDS: OMEGA-3/DHA/EPA/FISH OIL 500 MG CAPSULE PO SCH (08:08)
[2016-11-08 08:22] VITALS: BP 129/94
[2016-11-08] MEDS: OLANZapine 10 MG TABLET PO SCH (16:30)
[2016-11-08 19:00] VITALS: BP 143/84
[2016-11-09 03:10] VITALS: BP 119/81
[2016-11-09] MEDS: HALOPERIDOL 5 MG TABLET PO PRN (03:15)
[2016-11-09] MEDS: LORazepam 2 MG TABLET PO PRN (03:21)
[2016-11-09 06:17] LABS: GLUCOSE,POINT OF CARE 133 MG/DL (70-110)
[2016-11-09 08:53] VITALS: BP 150/79
[2016-11-09] MEDS: LITHIUM CARBONATE 300 MG CAPSULE PO SCH ×2 (09:05→16:26)
[2016-11-09] MEDS: OMEGA-3/DHA/EPA/FISH OIL 500 MG CAPSULE PO SCH (09:05)
[2016-11-09] MEDS: OLANZapine 10 MG TABLET PO SCH (16:26)
[2016-11-09 16:48] VITALS: BP 119/71
[2016-11-10 05:43] LABS: GLUCOSE COMMENT 1 Received Meds; GLUCOSE,POINT OF CARE 125 MG/DL (70-110)
[2016-11-10] MEDS: LITHIUM CARBONATE 300 MG CAPSULE PO SCH ×2 (08:37→16:06)
[2016-11-10] MEDS: OMEGA-3/DHA/EPA/FISH OIL 500 MG CAPSULE PO SCH (08:38)
[2016-11-10] MEDS: OLANZapine 10 MG TABLET PO SCH (16:06)
[2016-11-10] MEDS: LORazepam 2 MG TABLET PO PRN (16:53)
[2016-11-10 19:51] VITALS: BP 138/84
[2016-11-11 07:02] LABS: GLUCOSE,POINT OF CARE 122 MG/DL (70-110)
[2016-11-11 08:29] VITALS: BP 132/73
[2016-11-11] MEDS: OMEGA-3/DHA/EPA/FISH OIL 500 MG CAPSULE PO SCH (08:40)
[2016-11-11] MEDS: LITHIUM CARBONATE 300 MG CAPSULE PO SCH ×2 (08:40→16:31)
[2016-11-11] MEDS: LORazepam 2 MG TABLET PO PRN (12:33)
[2016-11-11] MEDS: OLANZapine 10 MG TABLET PO SCH (16:31)
[2016-11-11 18:17] VITALS: BP 127/76
[2016-11-12 08:30] VITALS: BP 142/75
[2016-11-12] MEDS: OMEGA-3/DHA/EPA/FISH OIL 500 MG CAPSULE PO SCH (09:06)
[2016-11-12] MEDS: LITHIUM CARBONATE 300 MG CAPSULE PO SCH ×2 (09:06→16:40)
[2016-11-12 12:13] LABS: GLUCOSE COMMENT 1 FASTING; GLUCOSE,POINT OF CARE 132 MG/DL (70-110)
[2016-11-12] MEDS: LORazepam 2 MG TABLET PO PRN (14:54)
[2016-11-12 16:34] VITALS: BP 101/75
[2016-11-12] MEDS: OLANZapine 10 MG TABLET PO SCH (16:40)
[2016-11-13 06:04] LABS: GLUCOSE COMMENT 1 FASTING; GLUCOSE,POINT OF CARE 134 MG/DL (70-110)
[2016-11-13] MEDS: LITHIUM CARBONATE 300 MG CAPSULE PO SCH ×2 (09:04→16:56)
[2016-11-13] MEDS: OMEGA-3/DHA/EPA/FISH OIL 500 MG CAPSULE PO SCH (09:04)
[2016-11-13] MEDS: LORazepam 2 MG TABLET PO PRN (10:13)
[2016-11-13] MEDS: HALOPERIDOL 5 MG TABLET PO PRN (10:13)
[2016-11-13 10:15] VITALS: BP 139/80
[2016-11-13 16:15] VITALS: BP 134/74
[2016-11-13] MEDS: OLANZapine 10 MG TABLET PO SCH (16:56)
[2016-11-14 06:13] LABS: GLUCOSE,POINT OF CARE 130 MG/DL (70-110)
[2016-11-14] MEDS: INSULIN ASPART 100 UNITS/ML SQ PRN (07:09)
[2016-11-14 08:51] VITALS: BP 133/77
[2016-11-14] MEDS: LITHIUM CARBONATE 300 MG CAPSULE PO SCH ×2 (09:34→16:12)
[2016-11-14] MEDS: OMEGA-3/DHA/EPA/FISH OIL 500 MG CAPSULE PO SCH (09:34)
[2016-11-14] MEDS: LORazepam 2 MG TABLET PO PRN (10:47)
[2016-11-14] MEDS: OLANZapine 10 MG TABLET PO SCH (16:12)
[2016-11-14 16:15] VITALS: BP 120/81
[2016-11-15 06:17] LABS: GLUCOSE,POINT OF CARE 126 MG/DL (70-110)
[2016-11-15] MEDS: INSULIN ASPART 100 UNITS/ML SQ PRN (06:39)
[2016-11-15 08:30] VITALS: BP 134/79
[2016-11-15] MEDS: OMEGA-3/DHA/EPA/FISH OIL 500 MG CAPSULE PO SCH (08:30)
[2016-11-15] MEDS: LITHIUM CARBONATE 300 MG CAPSULE PO SCH ×2 (08:30→16:15)
[2016-11-15] MEDS: OLANZapine 10 MG TABLET PO SCH (16:15)
[2016-11-15 16:44] VITALS: BP 120/76
[2016-11-16 06:08] LABS: GLUCOSE,POINT OF CARE 140 MG/DL (70-110)
[2016-11-16] MEDS: HALOPERIDOL 5 MG TABLET PO PRN (06:49)
[2016-11-16] MEDS: LORazepam 2 MG TABLET PO PRN ×2 (06:49→16:55)
[2016-11-16] MEDS: OMEGA-3/DHA/EPA/FISH OIL 500 MG CAPSULE PO SCH (09:19)
[2016-11-16] MEDS: LITHIUM CARBONATE 300 MG CAPSULE PO SCH ×2 (09:19→15:54)
[2016-11-16 14:09] VITALS: BP 124/74
[2016-11-16] MEDS: OLANZapine 10 MG TABLET PO SCH (15:55)
[2016-11-16 18:48] VITALS: BP 128/80
[2016-11-17 08:45] VITALS: BP 133/88
[2016-11-17] MEDS: OMEGA-3/DHA/EPA/FISH OIL 500 MG CAPSULE PO SCH (09:09)
[2016-11-17] MEDS: LITHIUM CARBONATE 300 MG CAPSULE PO SCH ×2 (09:09→16:31)
[2016-11-17] MEDS: OLANZapine 10 MG TABLET PO SCH (16:31)
[2016-11-17 16:51] VITALS: BP 114/72
[2016-11-18 06:23] LABS: GLUCOSE,POINT OF CARE 128 MG/DL (70-110)
[2016-11-18 08:20] VITALS: BP 118/74
[2016-11-18] MEDS: OMEGA-3/DHA/EPA/FISH OIL 500 MG CAPSULE PO SCH (08:36)
[2016-11-18] MEDS: LITHIUM CARBONATE 300 MG CAPSULE PO SCH ×2 (08:36→16:29)
[2016-11-18] MEDS: LORazepam 2 MG TABLET PO PRN (12:28)
[2016-11-18] MEDS: OLANZapine 10 MG TABLET PO SCH (16:29)
[2016-11-18 19:12] VITALS: BP 119/70
[2016-11-19 05:47] LABS: GLUCOSE,POINT OF CARE 119 MG/DL (70-110)
[2016-11-19] MEDS: INSULIN ASPART 100 UNITS/ML SQ PRN (06:40)
[2016-11-19] MEDS: OMEGA-3/DHA/EPA/FISH OIL 500 MG CAPSULE PO SCH (08:21)
[2016-11-19] MEDS: LITHIUM CARBONATE 300 MG CAPSULE PO SCH ×2 (08:21→16:26)
[2016-11-19 08:59] VITALS: BP 127/81
[2016-11-19] MEDS: OLANZapine 10 MG TABLET PO SCH (16:26)
[2016-11-19 16:55] VITALS: BP 112/76
[2016-11-20 06:23] LABS: GLUCOSE COMMENT 1 Received Meds; GLUCOSE,POINT OF CARE 141 MG/DL (70-110)
[2016-11-20] MEDS: INSULIN ASPART 100 UNITS/ML SQ PRN (06:25)
[2016-11-20] MEDS: OMEGA-3/DHA/EPA/FISH OIL 500 MG CAPSULE PO SCH (08:32)
[2016-11-20] MEDS: LITHIUM CARBONATE 300 MG CAPSULE PO SCH ×2 (08:33→17:05)
[2016-11-20 08:58] VITALS: BP 132/70
[2016-11-20] MEDS: LORazepam 2 MG TABLET PO PRN (09:44)
[2016-11-20] MEDS: MAG HYDROX/AL HYDROX/SIMETH ES 30 ML SUSPENSION UDCUP PO PRN (13:05)
[2016-11-20 16:00] VITALS: BP 122/75
[2016-11-20] MEDS: OLANZapine 10 MG TABLET PO SCH (17:05)
[2016-11-21 05:32] LABS: GLUCOSE COMMENT 1 Received Meds; GLUCOSE,POINT OF CARE 135 MG/DL (70-110)
[2016-11-21] MEDS: LITHIUM CARBONATE 300 MG CAPSULE PO SCH ×2 (08:16→16:01)
[2016-11-21] MEDS: OMEGA-3/DHA/EPA/FISH OIL 500 MG CAPSULE PO SCH (08:16)
[2016-11-21 08:49] VITALS: BP 108/76
[2016-11-21] MEDS: OLANZapine 10 MG TABLET PO SCH (16:01)
[2016-11-21 17:07] VITALS: BP 127/62
[2016-11-22 06:12] LABS: GLUCOSE,POINT OF CARE 130 MG/DL (70-110)
[2016-11-22 08:06] VITALS: BP 124/79
[2016-11-22] MEDS: LITHIUM CARBONATE 300 MG CAPSULE PO SCH ×2 (08:23→16:12)
[2016-11-22] MEDS: OMEGA-3/DHA/EPA/FISH OIL 500 MG CAPSULE PO SCH (08:23)
[2016-11-22] MEDS: OLANZapine 10 MG TABLET PO SCH (16:12)
[2016-11-22 17:06] VITALS: BP 134/87
[2016-11-22] MEDS: LORazepam 2 MG TABLET PO PRN (17:25)
[2016-11-23 04:43] VITALS: BP 135/83
[2016-11-23 05:28] LABS: GLUCOSE COMMENT 1 Received Meds; GLUCOSE,POINT OF CARE 123 MG/DL (70-110)
[2016-11-23 08:00] VITALS: BP 147/89
[2016-11-23] MEDS: LITHIUM CARBONATE 300 MG CAPSULE PO SCH ×2 (08:09→16:08)
[2016-11-23] MEDS: OMEGA-3/DHA/EPA/FISH OIL 500 MG CAPSULE PO SCH (08:09)
[2016-11-23] MEDS: OLANZapine 10 MG TABLET PO SCH (16:07)
[2016-11-23 16:12] VITALS: BP 137/90
[2016-11-24 05:38] LABS: GLUCOSE,POINT OF CARE 129 MG/DL (70-110)
[2016-11-24] MEDS: INSULIN ASPART 100 UNITS/ML SQ PRN (07:24)
[2016-11-24] MEDS: LITHIUM CARBONATE 300 MG CAPSULE PO SCH ×2 (09:39→16:19)
[2016-11-24] MEDS: OMEGA-3/DHA/EPA/FISH OIL 500 MG CAPSULE PO SCH (09:39)
[2016-11-24 11:01] VITALS: BP 137/76
[2016-11-24] MEDS: OLANZapine 10 MG TABLET PO SCH (16:19)
[2016-11-24 18:06] VITALS: BP 130/80
[2016-11-25 05:47] VITALS: BP 131/82
[2016-11-25 06:29] LABS: GLUCOSE COMMENT 1 Received Meds; GLUCOSE,POINT OF CARE 148 MG/DL (70-110)
[2016-11-25 07:04] LABS: BASOPHILS # (AUTO) 0.01 K/uL (0.00-0.20); BASOPHILS % (AUTO) 0.1 % (0.0-2.0); EOSINOPHILS # (AUTO) 0.16 K/uL (0.00-0.70); EOSINOPHILS % (AUTO) 2.07 % (1.0-6.0); HEMATOCRIT 43.1 % (36-46); HEMOGLOBIN 14.6 g/dL (12.0-16.0); LYMPHOCYTES # (AUTO) 2.9 K/uL (1.0-4.8); LYMPHOCYTES % (AUTO) 37.8 % (22.0-44.0); MEAN CORPUSCULAR HEMOGLOBIN 31.1 pg (26.0-34.0); MEAN CORPUSCULAR HGB CONC 33.9 G/dL (31.0-37.0); MEAN CORPUSCULAR VOLUME 92 fL (80-100); MONOCYTES # (AUTO) 0.7 K/uL (0.1-1.0); MONOCYTES % (AUTO) 8.5 % (2.0-9.0); NEUTROPHILS % (AUTO) 51.5 % (40.0-70.0); PLATELET COUNT (AUTO) 306 K/uL (150-450); RED BLOOD CELL COUNT(AUTO) 4.71 MIL/uL (4.00-5.20); RED CELL DISTRIBUTION WIDTH 12.9 % (11.5-14.5); WHITE BLOOD COUNT (AUTO) 7.7 K/uL (4.5-11.0)
[2016-11-25] MEDS: INSULIN ASPART 100 UNITS/ML SQ PRN (07:20)
[2016-11-25] MEDS ORDERED: CloZAPine 25 MG TABLET PO SCH (09:00)
[2016-11-25] MEDS: LITHIUM CARBONATE 300 MG CAPSULE PO SCH ×2 (09:03→16:44)
[2016-11-25] MEDS: OMEGA-3/DHA/EPA/FISH OIL 500 MG CAPSULE PO SCH (09:03)
[2016-11-25 09:10] VITALS: BP 156/88
[2016-11-25] MEDS: OLANZapine 10 MG TABLET PO SCH (16:45)
[2016-11-25 18:07] VITALS: BP 142/90
[2016-11-26 06:23] LABS: GLUCOSE COMMENT 1 Received Meds; GLUCOSE,POINT OF CARE 142 MG/DL (70-110)
[2016-11-26] MEDS: INSULIN ASPART 100 UNITS/ML SQ PRN (07:08)
[2016-11-26] MEDS: LITHIUM CARBONATE 300 MG CAPSULE PO SCH ×2 (08:37→16:22)
[2016-11-26] MEDS: OMEGA-3/DHA/EPA/FISH OIL 500 MG CAPSULE PO SCH (08:37)
[2016-11-26] MEDS ORDERED: CloZAPine 25 MG TABLET PO SCH ×2 (09:00→21:00)
[2016-11-26 09:08] VITALS: BP 120/69
[2016-11-26] MEDS: OLANZapine 10 MG TABLET PO SCH (16:24)
[2016-11-26 21:24] VITALS: BP 137/81
[2016-11-27 05:43] LABS: GLUCOSE,POINT OF CARE 138 MG/DL (70-110)
[2016-11-27] MEDS: OMEGA-3/DHA/EPA/FISH OIL 500 MG CAPSULE PO SCH (08:14)
[2016-11-27] MEDS: LITHIUM CARBONATE 300 MG CAPSULE PO SCH ×2 (08:14→17:12)
[2016-11-27 08:20] VITALS: BP 127/82
[2016-11-27] MEDS ORDERED: CloZAPine 25 MG TABLET PO SCH ×2 (09:00→21:00)
[2016-11-27 17:00] VITALS: BP 140/98
[2016-11-27] MEDS: OLANZapine 10 MG TABLET PO SCH (17:12)
[2016-11-28 06:07] LABS: GLUCOSE,POINT OF CARE 164 MG/DL (70-110)
[2016-11-28 08:40] VITALS: BP 136/78
[2016-11-28] MEDS: OMEGA-3/DHA/EPA/FISH OIL 500 MG CAPSULE PO SCH (09:00)
[2016-11-28] MEDS: LITHIUM CARBONATE 300 MG CAPSULE PO SCH ×2 (09:00→16:46)
[2016-11-28] MEDS: CloZAPine 25 MG TABLET PO SCH ×2 (09:00→21:01)
[2016-11-28 16:30] VITALS: BP 132/91
[2016-11-28] MEDS: OLANZapine 10 MG TABLET PO SCH (16:46)
[2016-11-29 04:48] VITALS: BP 130/87
[2016-11-29 05:48] LABS: GLUCOSE,POINT OF CARE 137 MG/DL (70-110)
[2016-11-29] MEDS: OMEGA-3/DHA/EPA/FISH OIL 500 MG CAPSULE PO SCH (08:09)
[2016-11-29] MEDS: CloZAPine 25 MG TABLET PO SCH ×2 (08:10→20:30)
[2016-11-29] MEDS: LITHIUM CARBONATE 300 MG CAPSULE PO SCH ×2 (08:10→16:06)
[2016-11-29 09:10] VITALS: BP 127/77
[2016-11-29 16:04] VITALS: BP 135/85
[2016-11-29] MEDS: OLANZapine 10 MG TABLET PO SCH (16:07)
[2016-11-30 08:03] LABS: GLUCOSE,POINT OF CARE 131 MG/DL (70-110)
[2016-11-30 08:22] VITALS: BP 123/83
[2016-11-30] MEDS: LITHIUM CARBONATE 300 MG CAPSULE PO SCH ×2 (08:50→16:04)
[2016-11-30] MEDS: OMEGA-3/DHA/EPA/FISH OIL 500 MG CAPSULE PO SCH (08:50)
[2016-11-30] MEDS ORDERED: CloZAPine 25 MG TABLET PO SCH (09:00)
[2016-11-30] MEDS: OLANZapine 10 MG TABLET PO SCH (16:04)
[2016-11-30 16:51] VITALS: BP 132/84
[2016-11-30] MEDS ORDERED: CloZAPine 100 MG TABLET PO SCH (21:00)
[2016-12-01 05:38] LABS: GLUCOSE COMMENT 1 Received Meds; GLUCOSE,POINT OF CARE 139 MG/DL (70-110)
[2016-12-01 08:22] VITALS: BP 144/82
[2016-12-01] MEDS: OMEGA-3/DHA/EPA/FISH OIL 500 MG CAPSULE PO SCH (08:26)
[2016-12-01] MEDS: LITHIUM CARBONATE 300 MG CAPSULE PO SCH ×2 (08:26→16:09)
[2016-12-01] MEDS ORDERED: CloZAPine 25 MG TABLET PO SCH (09:00)
[2016-12-01] MEDS: OLANZapine 10 MG TABLET PO SCH (16:09)
[2016-12-01] MEDS ORDERED: CloZAPine 100 MG TABLET PO SCH (21:00)
[2016-12-01 21:57] VITALS: BP 139/89
[2016-12-02 05:57] LABS: GLUCOSE,POINT OF CARE 134 MG/DL (70-110)
[2016-12-02 06:46] LABS: BASOPHILS % (AUTO) 0.3 % (0.0-2.0); EOSINOPHILS % (AUTO) 2.9 % (1.0-6.0); HEMATOCRIT 38.5 % (36-46); HEMOGLOBIN 13.3 g/dL (12.0-16.0); LYMPHOCYTES % (AUTO) 30.7 % (22.0-44.0); MEAN CORPUSCULAR HEMOGLOBIN 31.6 pg (26.0-34.0); MEAN CORPUSCULAR HGB CONC 34.6 G/dL (31.0-37.0); MEAN CORPUSCULAR VOLUME 91 fL (80-100); MONOCYTES # (AUTO) 0.6 K/uL (0.1-1.0); MONOCYTES % (AUTO) 9.1 % (2.0-9.0); NEUTROPHILS # (AUTO) 3.6 K/uL (1.8-7.7); PLATELET COUNT (AUTO) 260 K/uL (150-450); RED BLOOD CELL COUNT(AUTO) 4.21 MIL/uL (4.00-5.20); RED CELL DISTRIBUTION WIDTH 12.9 % (11.5-14.5); WHITE BLOOD COUNT (AUTO) 6.4 K/uL (4.5-11.0)
[2016-12-02] MEDS: OMEGA-3/DHA/EPA/FISH OIL 500 MG CAPSULE PO SCH (08:04)
[2016-12-02] MEDS: LITHIUM CARBONATE 300 MG CAPSULE PO SCH ×2 (08:04→16:13)
[2016-12-02 08:45] VITALS: BP 149/99
[2016-12-02] MEDS ORDERED: CloZAPine 25 MG TABLET PO SCH (09:00)
[2016-12-02] MEDS: OLANZapine 10 MG TABLET PO SCH (16:13)
[2016-12-02 16:22] VITALS: BP 122/85
[2016-12-02] MEDS ORDERED: CloZAPine 100 MG TABLET PO SCH (21:00)
[2016-12-03 05:57] LABS: GLUCOSE,POINT OF CARE 142 MG/DL (70-110)
[2016-12-03] MEDS: INSULIN ASPART 100 UNITS/ML SQ PRN (06:52)
[2016-12-03] MEDS: LITHIUM CARBONATE 300 MG CAPSULE PO SCH ×2 (08:11→16:27)
[2016-12-03] MEDS: OMEGA-3/DHA/EPA/FISH OIL 500 MG CAPSULE PO SCH (08:11)
[2016-12-03 08:38] VITALS: BP 132/84
[2016-12-03] MEDS ORDERED: CloZAPine 100 MG TABLET PO SCH (09:00)
[2016-12-03] MEDS: OLANZapine 10 MG TABLET PO SCH (16:27)
[2016-12-03] MEDS: CloZAPine 100 MG TABLET PO SCH (16:27)
[2016-12-03 16:37] VITALS: BP 136/89
[2016-12-04 06:18] LABS: GLUCOSE,POINT OF CARE 149 MG/DL (70-110)
[2016-12-04] MEDS: INSULIN ASPART 100 UNITS/ML SQ PRN (07:03)
[2016-12-04 08:11] VITALS: BP 153/91
[2016-12-04] MEDS ORDERED: CloZAPine 100 MG TABLET PO SCH (09:00)
[2016-12-04] MEDS: OMEGA-3/DHA/EPA/FISH OIL 500 MG CAPSULE PO SCH (09:06)
[2016-12-04] MEDS: LITHIUM CARBONATE 300 MG CAPSULE PO SCH ×2 (09:06→16:50)
[2016-12-04] MEDS: CloZAPine 100 MG TABLET PO SCH (16:50)
[2016-12-04] MEDS: OLANZapine 10 MG TABLET PO SCH (16:50)
[2016-12-04 18:00] VITALS: BP 146/86
[2016-12-05 06:12] LABS: GLUCOSE,POINT OF CARE 114 MG/DL (70-110)
[2016-12-05 08:30] VITALS: BP 114/88
[2016-12-05] MEDS ORDERED: CloZAPine 25 MG TABLET PO SCH (09:00)
[2016-12-05] MEDS: LITHIUM CARBONATE 300 MG CAPSULE PO SCH ×2 (09:34→16:20)
[2016-12-05] MEDS: OMEGA-3/DHA/EPA/FISH OIL 500 MG CAPSULE PO SCH (09:34)
[2016-12-05] MEDS: OLANZapine 10 MG TABLET PO SCH (16:21)
[2016-12-05 16:53] VITALS: BP 138/84
[2016-12-05] MEDS ORDERED: CloZAPine 100 MG TABLET PO SCH (21:00)
[2016-12-06 05:58] LABS: GLUCOSE,POINT OF CARE 130 MG/DL (70-110)
[2016-12-06] MEDS: OMEGA-3/DHA/EPA/FISH OIL 500 MG CAPSULE PO SCH (08:14)
[2016-12-06] MEDS: LITHIUM CARBONATE 300 MG CAPSULE PO SCH ×2 (08:14→15:56)
[2016-12-06] MEDS ORDERED: CloZAPine 25 MG TABLET PO SCH (09:00)
[2016-12-06 09:08] VITALS: BP 135/84
[2016-12-06] MEDS: OLANZapine 10 MG TABLET PO SCH (15:56)
[2016-12-06] MEDS ORDERED: CloZAPine 100 MG TABLET PO SCH (21:00)
[2016-12-06 21:03] VITALS: BP 142/78
[2016-12-07 05:57] VITALS: BP 138/86
[2016-12-07] MEDS: INSULIN ASPART 100 UNITS/ML SQ PRN (07:00)
[2016-12-07 07:54] LABS: GLUCOSE COMMENT 1 Received Meds; GLUCOSE,POINT OF CARE 153 MG/DL (70-110)
[2016-12-07] MEDS: LITHIUM CARBONATE 300 MG CAPSULE PO SCH ×2 (08:27→16:52)
[2016-12-07] MEDS: OMEGA-3/DHA/EPA/FISH OIL 500 MG CAPSULE PO SCH (08:27)
[2016-12-07] MEDS: CloZAPine 100 MG TABLET PO SCH ×2 (08:27→20:45)
[2016-12-07 08:44] VITALS: BP 142/93
[2016-12-07] MEDS ORDERED: INFLUENZA VIRUS VACCINE QVS 2017-18 (3YR+)/PF 60 MCG/0.5 ML SYRINGE IM ONE (10:45)
[2016-12-07] MEDS: OLANZapine 10 MG TABLET PO SCH (16:52)
[2016-12-07 17:17] VITALS: BP 154/95
[2016-12-08] MEDS: INSULIN ASPART 100 UNITS/ML SQ PRN (06:52)
[2016-12-08 08:15] VITALS: BP 158/90
[2016-12-08] MEDS: OMEGA-3/DHA/EPA/FISH OIL 500 MG CAPSULE PO SCH (09:05)
[2016-12-08] MEDS: LITHIUM CARBONATE 300 MG CAPSULE PO SCH ×2 (09:05→16:54)
[2016-12-08] MEDS: CloZAPine 100 MG TABLET PO SCH ×2 (09:06→20:26)
[2016-12-08 11:14] LABS: GLUCOSE,POINT OF CARE 148 MG/DL (70-110)
[2016-12-08] MEDS: OLANZapine 10 MG TABLET PO SCH (16:54)
[2016-12-08 17:31] VITALS: BP 138/90
[2016-12-09 05:37] VITALS: BP 132/68
[2016-12-09 06:09] LABS: GLUCOSE,POINT OF CARE 165 MG/DL (70-110)
[2016-12-09 06:45] LABS: BASOPHILS % (AUTO) 0.2 % (0.0-2.0); EOSINOPHILS % (AUTO) 1.2 % (1.0-6.0); HEMATOCRIT 41.7 % (36-46); HEMOGLOBIN 14.3 g/dL (12.0-16.0); LYMPHOCYTES # (AUTO) 2.3 K/uL (1.0-4.8); LYMPHOCYTES % (AUTO) 18.1 % (22.0-44.0); MEAN CORPUSCULAR HEMOGLOBIN 31.3 pg (26.0-34.0); MEAN CORPUSCULAR HGB CONC 34.2 G/dL (31.0-37.0); MEAN CORPUSCULAR VOLUME 92 fL (80-100); MONOCYTES # (AUTO) 1.1 K/uL (0.1-1.0); MONOCYTES % (AUTO) 8.7 % (2.0-9.0); NEUTROPHILS # (AUTO) 8.9 K/uL (1.8-7.7); NEUTROPHILS % (AUTO) 71.8 % (40.0-70.0); PLATELET COUNT (AUTO) 285 K/uL (150-450); RED BLOOD CELL COUNT(AUTO) 4.55 MIL/uL (4.00-5.20); RED CELL DISTRIBUTION WIDTH 12.6 % (11.5-14.5); WHITE BLOOD COUNT (AUTO) 12.5 K/uL (4.5-11.0)
[2016-12-09] MEDS: INSULIN ASPART 100 UNITS/ML SQ PRN (07:12)
[2016-12-09 08:15] VITALS: BP 138/79
[2016-12-09] MEDS: CloZAPine 100 MG TABLET PO SCH ×2 (09:22→20:10)
[2016-12-09] MEDS: OMEGA-3/DHA/EPA/FISH OIL 500 MG CAPSULE PO SCH (09:22)
[2016-12-09] MEDS: LITHIUM CARBONATE 300 MG CAPSULE PO SCH ×2 (09:22→15:57)
[2016-12-09] MEDS: OLANZapine 10 MG TABLET PO SCH (15:57)
[2016-12-09] MEDS: LORazepam 2 MG TABLET PO PRN (16:52)
[2016-12-09 19:57] VITALS: BP 135/75
[2016-12-10 05:48] LABS: GLUCOSE COMMENT 1 FASTING; GLUCOSE COMMENT 2 Received Meds; GLUCOSE,POINT OF CARE 164 MG/DL (70-110)
[2016-12-10] MEDS: INSULIN ASPART 100 UNITS/ML SQ PRN (06:57)
[2016-12-10 08:10] VITALS: BP 143/80
[2016-12-10] MEDS: CloZAPine 100 MG TABLET PO SCH ×2 (08:31→20:11)
[2016-12-10] MEDS: OMEGA-3/DHA/EPA/FISH OIL 500 MG CAPSULE PO SCH (08:31)
[2016-12-10] MEDS: LITHIUM CARBONATE 300 MG CAPSULE PO SCH ×2 (08:31→16:38)
[2016-12-10 16:16] VITALS: BP 112/93
[2016-12-10] MEDS: OLANZapine 10 MG TABLET PO SCH (16:37)
[2016-12-11 05:37] LABS: GLUCOSE COMMENT 1 Received Meds; GLUCOSE,POINT OF CARE 208 MG/DL (70-110)
[2016-12-11] MEDS: INSULIN ASPART 100 UNITS/ML SQ PRN (07:21)
[2016-12-11 08:14] VITALS: BP 103/59
[2016-12-11] MEDS: CloZAPine 100 MG TABLET PO SCH ×2 (09:01→20:44)
[2016-12-11] MEDS: OMEGA-3/DHA/EPA/FISH OIL 500 MG CAPSULE PO SCH (09:01)
[2016-12-11] MEDS: LITHIUM CARBONATE 300 MG CAPSULE PO SCH ×2 (09:01→17:13)
[2016-12-11] MEDS: OLANZapine 10 MG TABLET PO SCH (17:13)
[2016-12-11] MEDS: MAG HYDROX/AL HYDROX/SIMETH ES 30 ML SUSPENSION UDCUP PO PRN (17:14)
[2016-12-11 17:19] VITALS: BP 107/79
[2016-12-11] MEDS ORDERED: CLOZ100 PO ×2 (20:24)
[2016-12-11] MEDS ORDERED: OMEG-12 PO (20:26)
[2016-12-12 05:05] VITALS: BP 115/73
[2016-12-12 05:47] LABS: GLUCOSE,POINT OF CARE 233 MG/DL (70-110)
[2016-12-12] MEDS: INSULIN ASPART 100 UNITS/ML SQ PRN (07:05)
[2016-12-12] MEDS: OMEGA-3/DHA/EPA/FISH OIL 500 MG CAPSULE PO SCH (08:11)
[2016-12-12] MEDS: CloZAPine 100 MG TABLET PO SCH (08:11)
[2016-12-12] MEDS: LITHIUM CARBONATE 300 MG CAPSULE PO SCH (08:11)
[2016-12-12 08:47] VITALS: BP 104/82
== END 2016-12-12 12:10 | DRG 885 ==
LOC: 3EX 20:47
PROVIDERS: ADMIT Psychiatry & Neurology Psychiatry; ATTEND Psychiatry & Neurology Psychiatry
PROC: 3E0234Z Introduction of Serum, Toxoid and Vaccine into Muscle, Percutaneous Approach (ICD-10-PCS; principal; 2016-10-19)
PROC: 3E0234Z Introduction of Serum, Toxoid and Vaccine into Muscle, Percutaneous Approach (ICD-10-PCS; 2016-12-07)
DX: F25.0 Schizoaffective disorder, bipolar type (principal); E11.9 Type 2 diabetes mellitus without complications; F23 Brief psychotic disorder; I10 Essential (primary) hypertension; E78.5 Hyperlipidemia, unspecified; G47.00 Insomnia, unspecified; G93.9 Disorder of brain, unspecified; M54.5 Low back pain; H66.90 Otitis media, unspecified, unspecified ear; L60.0 Ingrowing nail; R06.4 Hyperventilation; Z59.0 Homelessness; Z23 Encounter for immunization; Z79.899 Other long term (current) drug therapy; Z88.8 Allergy status to other drugs, medicaments and biological substances
CPT/HCPCS: 80307; 82962; 83036; 87081; 90471; 90632

== ENCOUNTER 2023-11-09 14:08 | Inpatient (IN) | payer MEDICARE ==
[~2023-11-09] VITALS: Ht 157.5 cm; Wt 66.2 kg
[~2023-11-09 14:08] MED LIST changes: +CLOZ100T12 PO; -OLAN10TA3 PO; +OLAN10TA74 PO; +OMEG-12 PO
[2023-11-09] MEDS ORDERED: ZOLPIDEM TARTRATE 10 MG TABLET PO PRN (14:45)
[2023-11-09 15:35] LABS: GLUCOMETER DEV NAME(LOC) POC.BV; POC SARS-COV2 AG, FIA NEGATIVE (NEGATIVE)
[2023-11-09 15:40] VITALS: BP 158/90; PULSE 81; RESP 16; TEMP 97.3; O2SAT 98
[2023-11-09] MEDS: DiphenhydrAMINE HCL 50 MG/ML VIAL IM ONE (16:14)
[2023-11-09] MEDS: LORazepam 2 MG/ML VIAL IM ONE (16:14)
[2023-11-09] MEDS: HALOPERIDOL LACTATE 5 MG/ML VIAL IM ONE (16:16)
[2023-11-09] MEDS ORDERED: PALI6TAB15 PO (18:12)
[2023-11-09 20:00] VITALS: BP 146/84; PULSE 82; RESP 18; TEMP 97.6; O2SAT 96
[2023-11-09] MEDS ORDERED: ACETAMINOPHEN 325 MG TABLET PO PRN (21:45)
[2023-11-09] MEDS ORDERED: IBUPROFEN 600 MG TABLET PO PRN (21:45)
[2023-11-09] MEDS ORDERED: CloNIDine HCL 0.1 MG TABLET PO PRN (21:45)
[2023-11-09] MEDS ORDERED: MAGNESIUM HYDROXIDE SUSPENSION 30 ML UDCUP PO PRN (21:45)
[2023-11-09] MEDS ORDERED: ONDANSETRON 4 MG TABLET PO PRN (21:45)
[2023-11-09] MEDS ORDERED: PETROLATUM,WHITE 28 GM JELLY TP PRN (21:45)
[2023-11-09] MEDS ORDERED: LOPERAMIDE HCL 2 MG CAPSULE PO PRN (21:45)
[2023-11-09] MEDS ORDERED: BENZOCAINE/MENTHOL LOZENGE PO PRN (21:45)
[2023-11-09] MEDS ORDERED: OMEPRAZOLE 20 MG CAPSULE PO PRN (21:45)
[2023-11-09] MEDS ORDERED: ALBUTEROL SULFATE HFA 90 MCG/PUFF 8 GM INHALER IH PRN (21:45)
[2023-11-09] MEDS ORDERED: BACITRACIN 28 GM OINTMENT TP PRN (21:45)
[2023-11-09] MEDS ORDERED: DOCUSATE SODIUM 100 MG CAPSULE PO PRN (21:45)
[2023-11-10 08:50] LABS: BASOPHILS % (AUTO) 0.7 % (0.0-2.0); EOSINOPHILS % (AUTO) 2.8 % (1.0-6.0); HEMATOCRIT 39.8 % (36-46); HEMOGLOBIN 13.5 g/dL (12.0-16.0); LYMPHOCYTES # (AUTO) 2.2 K/uL (1.0-4.8); LYMPHOCYTES % (AUTO) 38.7 % (22.0-44.0); MEAN CORPUSCULAR HEMOGLOBIN 31.2 pg (26.0-34.0); MEAN CORPUSCULAR HGB CONC 33.9 G/dL (31.0-37.0); MEAN CORPUSCULAR VOLUME 92 fL (80-100); MONOCYTES # (AUTO) 0.6 K/uL (0.1-1.0); MONOCYTES % (AUTO) 9.9 % (2.0-9.0); NEUTROPHILS # (AUTO) 2.7 K/uL (1.8-7.7); NEUTROPHILS % (AUTO) 47.9 % (40.0-70.0); PLATELET COUNT (AUTO) 247 K/uL (150-450); RED BLOOD CELL COUNT(AUTO) 4.32 MIL/uL (4.00-5.20); RED CELL DISTRIBUTION WIDTH 13.2 % (11.5-14.5); WHITE BLOOD COUNT (AUTO) 5.6 K/uL (4.5-11.0)
[2023-11-10 09:12] LABS: HEMOGLOBIN A1C 6.3 % (3.8-5.6)
[2023-11-10 09:29] LABS: ALANINE AMINOTRANSFERASE 22 U/L (12-78); ALBUMIN 3.4 g/dL (3.4-5.0); ALKALINE PHOSPHATASE 90 U/L (46-116); ANION GAP 9 mmol/L (8-16); ASPARTATE AMINOTRANSFERASE 24 U/L (15-37); BILIRUBIN,TOTAL 0.4 mg/dL (0.1-1.0); CALCIUM, TOTAL 8.9 mg/dL (8.8-10.5); CARBON DIOXIDE 24 mmol/L (22-29); CHLORIDE 104 mmol/L (98-107); CHOL/HDL RATIO 4.1 (3.9-5.7); CHOLESTEROL 191 mg/dL (131-200); CREATININE 0.78 mg/dL (0.60-1.30); FREE T4 (FREE THYROXINE) 0.87 ng/dL (0.76-1.46); GLOMERULAR FILTR. RATE CALC > 60 mL/min (>60); GLUCOSE,RANDOM 142 mg/dL (70-110); HDL CHOLESTEROL 47 mg/dL (40-60); LDL CHOL (CALC.) 91 mg/dL (0-130); POTASSIUM 4.5 mmol/L (3.5-5.1); SODIUM SERUM 137 mmol/L (136-145); T4 (THYROXINE) 5.8 mcg/dL (4.7-13.3); THYROID STIMULATING HORMONE 1.51 uIU/mL (0.36-3.74); TOTAL PROTEIN, SERUM 6.7 g/dL (6.4-8.2); TRIGLYCERIDES 267 mg/dL (15-150); UREA NITROGEN, BLOOD 15 mg/dL (7-18)
[2023-11-10] MEDS: LORazepam 2 MG TABLET PO PRN (12:23)
[2023-11-10] MEDS: HALOPERIDOL 5 MG TABLET PO PRN (14:36)
[2023-11-10 20:30] VITALS: RESP 18
[2023-11-11 10:35] VITALS: RESP 19
[2023-11-11 16:00] VITALS: BP 143/99; PULSE 85; RESP 16; TEMP 97.5; O2SAT 95
[2023-11-11 20:19] VITALS: BP 143/99; PULSE 85; RESP 16; TEMP 97.5; O2SAT 95
[2023-11-12 08:00] VITALS: BP 131/64; PULSE 108; RESP 18; TEMP 97.7; O2SAT 100
[2023-11-12] MEDS: PALIPERIDONE PALMITATE 234 MG/1.5 ML SYRINGE IM ONE (15:34)
[2023-11-12 21:11] VITALS: BP 111/84; PULSE 85; RESP 16; TEMP 98.2; O2SAT 98
[2023-11-13 09:04] LABS: APPEARANCE,URINE CLEAR (CLEAR); BILIRUBIN,URINE NEGATIVE (NEGATIVE); COLOR,URINE LIGHT YELLOW (YELLOW); GLUCOSE, URINE (UA) NEGATIVE (NEGATIVE); KETONES,URINE NEGATIVE (NEGATIVE); LEUKOCYTE ESTERASE ,URINE LARGE (NEGATIVE); NITRATE,URINE NEGATIVE (NEGATIVE); OCCULT BLOOD,URINE NEGATIVE (NEGATIVE); PROTEIN,URINE NEGATIVE (NEGATIVE); SPECIFIC GRAVITIY, URINE 1.016 (1.003-1.030); UROBILINOGEN,URINE <=1.0 mg/dL (<=1.0)
[2023-11-13 09:07] LABS: ALCOHOL, URINE DRUG SCREEN NEGATIVE (NEGATIVE); AMPHET/METH SCREEN,URINE NEGATIVE (NEGATIVE); BARBITURATE SCREEN, URINE NEGATIVE (NEGATIVE); BENZODIAZEPINES SCREEN,URINE NEGATIVE (NEGATIVE); CANNABINOID SCREEN,URINE NEGATIVE (NEGATIVE); COCAINE SCREEN,URINE NEGATIVE (NEGATIVE); METHADONE SCREEN, URINE NEGATIVE (NEGATIVE); OPIATE SCREEN,URINE NEGATIVE (NEGATIVE); PHENCYCLIDINE SCREEN,URINE NEGATIVE (NEGATIVE)
[2023-11-13 09:16] LABS: RBC,URINE 0-2 /HPF (0-2)
[2023-11-13 09:17] LABS: BACTERIA,URINE Few /HPF (None Seen); SQUAMOUS EPITHELIAL CELL,UR Few /LPF (None Seen)
[2023-11-13 09:20] LABS: CALCIUM OXALATE CRYSTALS,UR Rare /LPF (None Seen)
[2023-11-13 16:39] VITALS: BP 118/76; PULSE 82; RESP 17; TEMP 98.4; O2SAT 98
[2023-11-13 20:15] VITALS: RESP 18
[2023-11-13 23:49] VITALS: BP 131/82; PULSE 88; RESP 18
[2023-11-14 08:15] VITALS: RESP 17
[2023-11-14 10:52] VITALS: BP 133/75; PULSE 88; RESP 17; TEMP 97.4
[2023-11-14 20:26] VITALS: BP 143/85; PULSE 87; RESP 16; TEMP 97.7
[2023-11-15 08:05] VITALS: BP 147/75; PULSE 79; RESP 16; TEMP 97.8; O2SAT 100
[2023-11-15] MEDS: CEFUROXIME AXETIL 250 MG TABLET PO SCH (09:00)
[2023-11-15 21:07] VITALS: RESP 17
[2023-11-16 01:01] VITALS: BP 121/61; PULSE 84; RESP 16; TEMP 96.4; O2SAT 98
[2023-11-16 08:18] VITALS: BP 145/82; PULSE 106; RESP 19; TEMP 97.8; O2SAT 98
[2023-11-16] MEDS ORDERED: LORazepam 2 MG/ML VIAL ONE (15:47)
[2023-11-16] MEDS ORDERED: DiphenhydrAMINE HCL 50 MG/ML VIAL ONE (15:47)
[2023-11-16] MEDS ORDERED: HALOPERIDOL LACTATE 5 MG/ML VIAL ONE (15:47)
[2023-11-16] MEDS: DiphenhydrAMINE HCL 50 MG/ML VIAL IM ONE (16:09)
[2023-11-16] MEDS: HALOPERIDOL LACTATE 5 MG/ML VIAL IM ONE (16:09)
[2023-11-16] MEDS: LORazepam 2 MG/ML VIAL IM ONE (16:10)
[2023-11-16 20:00] VITALS: BP 141/80; PULSE 84; RESP 16; TEMP 97.8; O2SAT 98
[2023-11-16] MEDS: HALOPERIDOL 10 MG TABLET PO SCH (20:28)
[2023-11-17 08:10] VITALS: BP 129/75; PULSE 87; RESP 17; TEMP 98; O2SAT 97
[2023-11-17 16:36] VITALS: BP 127/77; PULSE 81; RESP 18; TEMP 97.6; O2SAT 97
[2023-11-18 04:10] VITALS: BP 127/77; PULSE 90
[2023-11-18 09:21] VITALS: BP 116/82; PULSE 90; RESP 16; TEMP 98.8; O2SAT 98
[2023-11-18 23:25] VITALS: BP 113/86; PULSE 87; RESP 18; TEMP 98; O2SAT 97
[2023-11-19 08:00] VITALS: BP 130/90; PULSE 87; RESP 19; TEMP 97.2; O2SAT 96
[2023-11-19 20:50] VITALS: BP 113/74; PULSE 90; RESP 18; TEMP 97; O2SAT 98
[2023-11-20] MEDS: LORazepam 1 MG TABLET PO SCH (08:59)
[2023-11-20 09:28] VITALS: BP 120/80; PULSE 80; RESP 18; TEMP 98; O2SAT 100
[2023-11-20] MEDS ORDERED: LORazepam 2 MG/ML VIAL ONE (10:07)
[2023-11-20] MEDS ORDERED: DiphenhydrAMINE HCL 50 MG/ML VIAL ONE (10:07)
[2023-11-20] MEDS ORDERED: HALOPERIDOL LACTATE 5 MG/ML VIAL ONE (10:07)
[2023-11-20] MEDS: DiphenhydrAMINE HCL 50 MG/ML VIAL IM ONE (10:33)
[2023-11-20] MEDS: HALOPERIDOL LACTATE 5 MG/ML VIAL IM ONE (10:35)
[2023-11-20] MEDS: LORazepam 2 MG/ML VIAL IM ONE (10:36)
[2023-11-20] MEDS: MAG HYDROX/ALUMINUM HYD/SIMETH ES 30 ML SUSPENSION UDCUP PO PRN (14:57)
[2023-11-20 20:10] VITALS: BP 119/82; PULSE 85; RESP 18; TEMP 97.5; O2SAT 96
[2023-11-20] MEDS: BENZTROPINE MESYLATE 2 MG TABLET PO SCH (21:00)
[2023-11-21 09:15] VITALS: BP 150/74; PULSE 98; RESP 16; TEMP 97.5; O2SAT 96
[2023-11-22 08:08] VITALS: BP 137/81; PULSE 90; RESP 16; TEMP 97.7; O2SAT 97
[2023-11-22 21:10] VITALS: BP 128/79; PULSE 83; RESP 18; TEMP 98.1; O2SAT 98
[2023-11-23 08:16] VITALS: BP 127/84; PULSE 77; RESP 16; TEMP 97.3; O2SAT 96
[2023-11-23 20:41] VITALS: RESP 18
[2023-11-24 08:31] VITALS: BP 128/81; PULSE 79; RESP 18; TEMP 97.7; O2SAT 99
[2023-11-25 00:22] VITALS: RESP 18
[2023-11-25 08:28] VITALS: BP 131/82; PULSE 80; RESP 18; TEMP 97.9; O2SAT 100
[2023-11-25 23:50] VITALS: BP 128/80; PULSE 79; RESP 18; TEMP 97.9; O2SAT 98
[2023-11-26 13:28] VITALS: BP 136/82; PULSE 91; RESP 17; TEMP 98; O2SAT 99
[2023-11-26 20:03] VITALS: RESP 18
[2023-11-27] MEDS ORDERED: LORA-1000 PO (08:31)
[2023-11-27] MEDS ORDERED: HALO10TA21 PO (08:32)
[2023-11-27] MEDS ORDERED: BENZ2TAB84 PO (08:32)
[2023-11-27] MEDS ORDERED: PALI234D IM (08:34)
[2023-11-27 09:43] VITALS: BP 150/81; PULSE 88; RESP 18; TEMP 98.6; O2SAT 98
[2023-12-10] MEDS ORDERED: PALIPERIDONE PALMITATE 234 MG/1.5 ML SYRINGE IM SCH (09:00)
== END 2023-11-27 16:20 | disposition home or self-care (01) | DRG 885 ==
LOC: B2X 14:33 → B2S 11-14 08:12 → B2X 11-15 11:56
PROVIDERS: ADMIT Psychiatry & Neurology Psychiatry; ATTEND Psychiatry & Neurology Psychiatry
DX: F25.9 Schizoaffective disorder, unspecified (principal); E11.9 Type 2 diabetes mellitus without complications; I10 Essential (primary) hypertension; Z20.822 Contact with and (suspected) exposure to COVID-19; M54.50 Low back pain, unspecified; G47.00 Insomnia, unspecified; E78.5 Hyperlipidemia, unspecified; E78.1 Pure hyperglyceridemia; Z88.8 Allergy status to other drugs, medicaments and biological substances
CPT/HCPCS: 80053; 80061; 80307; 81001; 83036; 84436; 84439; 84443; 85025; 86592; 87081; 87086; 87186; J1200; J1630; J2060

== ENCOUNTER 2023-11-28 17:17 | Emergency (ER) | payer MEDICARE ==
[~2023-11-28] VITALS: Ht 157.5 cm; Wt 65.9 kg
[~2023-11-28 17:17] MED LIST changes: +BENZ2TAB84 PO; -CLOZ100T12 PO; +HALO10TA21 PO; -LITH300C3 PO; +LORA-1000 PO; -OLAN10TA74 PO; -OMEG-12 PO; +PALI234D IM
[2023-11-28 19:20] VITALS: TEMP 98.4
[2023-11-28 19:39] LABS: BASOPHILS % (AUTO) 0.5 % (0.0-2.0); EOSINOPHILS % (AUTO) 2.5 % (1.0-6.0); HEMATOCRIT 38.5 % (36-46); HEMOGLOBIN 13.6 g/dL (12.0-16.0); LYMPHOCYTES # (AUTO) 2.7 K/uL (1.0-4.8); MEAN CORPUSCULAR HEMOGLOBIN 31.7 pg (26.0-34.0); MEAN CORPUSCULAR HGB CONC 35.2 G/dL (31.0-37.0); MEAN CORPUSCULAR VOLUME 90 fL (80-100); MONOCYTES # (AUTO) 0.8 K/uL (0.1-1.0); MONOCYTES % (AUTO) 10.1 % (2.0-9.0); NEUTROPHILS # (AUTO) 4.2 K/uL (1.8-7.7); NEUTROPHILS % (AUTO) 52.9 % (40.0-70.0); PLATELET COUNT (AUTO) 281 K/uL (150-450); RED BLOOD CELL COUNT(AUTO) 4.27 MIL/uL (4.00-5.20); RED CELL DISTRIBUTION WIDTH 12.9 % (11.5-14.5); WHITE BLOOD COUNT (AUTO) 7.9 K/uL (4.5-11.0)
[2023-11-28 19:40] VITALS: BP 135/80; PULSE 74; RESP 13; O2SAT 97
[2023-11-28 19:50] LABS: ANION GAP 13 mmol/L (8-16); CARBON DIOXIDE 24 mmol/L (22-29); CHLORIDE 103 mmol/L (98-107); CREATININE 1.07 mg/dL (0.60-1.30); GLOMERULAR FILTR. RATE CALC 52 mL/min (>60); GLUCOSE,RANDOM 176 mg/dL (70-110); POTASSIUM 3.3 mmol/L (3.5-5.1); SODIUM SERUM 140 mmol/L (136-145); UREA NITROGEN, BLOOD 9 mg/dL (7-18)
[2023-11-28 19:54] LABS: ALCOHOL, BLOOD (SERUM) < 3 mg/dL (0-10)
[2023-11-28 20:11] LABS: ALCOHOL, URINE DRUG SCREEN NEGATIVE (NEGATIVE); AMPHET/METH SCREEN,URINE NEGATIVE (NEGATIVE); BARBITURATE SCREEN, URINE NEGATIVE (NEGATIVE); BENZODIAZEPINES SCREEN,URINE NEGATIVE (NEGATIVE); CANNABINOID SCREEN,URINE NEGATIVE (NEGATIVE); COCAINE SCREEN,URINE NEGATIVE (NEGATIVE); METHADONE SCREEN, URINE NEGATIVE (NEGATIVE); OPIATE SCREEN,URINE NEGATIVE (NEGATIVE); PHENCYCLIDINE SCREEN,URINE NEGATIVE (NEGATIVE)
[2023-11-28] MEDS: POTASSIUM CHLORIDE 20 MEQ ER TABLET PO ONE (21:50)
== END 2023-11-28 22:29 | disposition home or self-care (01) ==
LOC: EMS 17:17
DX: F41.9 Anxiety disorder, unspecified (principal); E87.6 Hypokalemia; E11.65 Type 2 diabetes mellitus with hyperglycemia; F31.9 Bipolar disorder, unspecified; E78.00 Pure hypercholesterolemia, unspecified; F20.9 Schizophrenia, unspecified; I10 Essential (primary) hypertension; Z59.00 Homelessness unspecified
CPT/HCPCS: 99283; 80048; 85025; 36415; 80307; G0480

== ENCOUNTER 2024-05-17 16:06 | Emergency (ER) | payer MEDICARE, OTHER ==
[~2024-05-17] VITALS: Ht 157.5 cm; Wt 65.9 kg
[~2024-05-17 16:06] MED LIST changes: -LORA-1000 PO; +LORA1TAB25 PO
[2024-05-17] MEDS ORDERED: RISP125S IM (16:12)
[2024-05-17] MEDS ORDERED: HYDR-4808 PO (16:12)
[2024-05-17] MEDS ORDERED: PROP20TA96 PO (16:12)
[2024-05-17 16:14] VITALS: TEMP 98.4
[2024-05-17 16:43] LABS: BASOPHILS % (AUTO) 0.6 % (0.0-2.0); EOSINOPHILS % (AUTO) 2.3 % (1.0-6.0); HEMOGLOBIN 13.1 g/dL (12.0-16.0); LYMPHOCYTES # (AUTO) 2.1 K/uL (1.0-4.8); LYMPHOCYTES % (AUTO) 31.5 % (22.0-44.0); MEAN CORPUSCULAR HEMOGLOBIN 31.3 pg (26.0-34.0); MEAN CORPUSCULAR HGB CONC 34.4 G/dL (31.0-37.0); MEAN CORPUSCULAR VOLUME 91 fL (80-100); MONOCYTES # (AUTO) 0.7 K/uL (0.1-1.0); MONOCYTES % (AUTO) 10.6 % (2.0-9.0); NEUTROPHILS # (AUTO) 3.7 K/uL (1.8-7.7); PLATELET COUNT (AUTO) 267 K/uL (150-450); RED BLOOD CELL COUNT(AUTO) 4.18 MIL/uL (4.00-5.20); RED CELL DISTRIBUTION WIDTH 12.7 % (11.5-14.5); WHITE BLOOD COUNT (AUTO) 6.7 K/uL (4.5-11.0)
[2024-05-17 16:51] LABS: ANION GAP 10 mmol/L (8-16); CALCIUM, TOTAL 9.2 mg/dL (8.8-10.5); CARBON DIOXIDE 26 mmol/L (22-29); CHLORIDE 99 mmol/L (98-107); CREATININE 0.89 mg/dL (0.60-1.30); GLOMERULAR FILTR. RATE CALC > 60 mL/min (>60); GLUCOSE,RANDOM 157 mg/dL (70-110); SODIUM SERUM 135 mmol/L (136-145); UREA NITROGEN, BLOOD 5 mg/dL (7-18)
[2024-05-17] MEDS: LORazepam 1 MG TABLET PO ONE (16:52)
[2024-05-17 17:01] LABS: POTASSIUM 2.7 mmol/L (3.5-5.1)
[2024-05-17 17:11] LABS: ALCOHOL, BLOOD (SERUM) < 3 mg/dL (0-10)
[2024-05-17] MEDS: POTASSIUM CHLORIDE 20 MEQ ER TABLET PO ONE (17:19)
[2024-05-17 17:30] LABS: COVID AG,FIA SOURCE NASAL SWAB
[2024-05-17 17:36] LABS: APPEARANCE,URINE CLEAR (CLEAR); BILIRUBIN,URINE NEGATIVE (NEGATIVE); COLOR,URINE COLORLESS (YELLOW); GLUCOSE, URINE (UA) NEGATIVE (NEGATIVE); KETONES,URINE NEGATIVE (NEGATIVE); LEUKOCYTE ESTERASE ,URINE NEGATIVE (NEGATIVE); NITRATE,URINE NEGATIVE (NEGATIVE); OCCULT BLOOD,URINE NEGATIVE (NEGATIVE); PROTEIN,URINE NEGATIVE (NEGATIVE); SPECIFIC GRAVITIY, URINE 1.003 (1.003-1.030); UROBILINOGEN,URINE <=1.0 mg/dL (<=1.0)
[2024-05-17 17:47] LABS: ALCOHOL, URINE DRUG SCREEN NEGATIVE (NEGATIVE); AMPHET/METH SCREEN,URINE POSITIVE (NEGATIVE); BARBITURATE SCREEN, URINE NEGATIVE (NEGATIVE); BENZODIAZEPINES SCREEN,URINE NEGATIVE (NEGATIVE); CANNABINOID SCREEN,URINE NEGATIVE (NEGATIVE); COCAINE SCREEN,URINE NEGATIVE (NEGATIVE); METHADONE SCREEN, URINE NEGATIVE (NEGATIVE); OPIATE SCREEN,URINE NEGATIVE (NEGATIVE); PHENCYCLIDINE SCREEN,URINE NEGATIVE (NEGATIVE)
[2024-05-17 17:49] VITALS: BP 147/89; PULSE 91; RESP 18; O2SAT 99
[2024-05-17 17:52] LABS: SARS-COV2 (COVID) ANTIGEN,FIA Negative (Negative)
== END 2024-05-17 17:54 | disposition home or self-care (01) ==
LOC: EMS 16:06
DX: F41.9 Anxiety disorder, unspecified (principal); E87.6 Hypokalemia; E11.9 Type 2 diabetes mellitus without complications; I10 Essential (primary) hypertension; E78.00 Pure hypercholesterolemia, unspecified; F25.9 Schizoaffective disorder, unspecified; F31.9 Bipolar disorder, unspecified; Z79.899 Other long term (current) drug therapy; Z88.8 Allergy status to other drugs, medicaments and biological substances; Z20.822 Contact with and (suspected) exposure to COVID-19
CPT/HCPCS: 99283; 87426; 80048; 85025; 36415; 80307; 81003; G0480